=== PATIENT | male | born 1940 | race Caucasian/White ===

== ENCOUNTER 2017-06-07 07:57 | Emergency (ER) | payer MEDICARE ==
[2017-06-07] MEDS ORDERED: ASPIRIN CHEW 81 MG TABLET PO STA (08:24)
[2017-06-07 08:35] LABS: BASOPHILS % (AUTO) 0.8 %; EOSINOPHILS # (AUTO) 0.3 10^3/uL (0.0-0.7); EOSINOPHILS % (AUTO) 4.8 %; HCT - HEMATOCRIT 37.5 % (42.0-52.0); LYMPHOCYTES # (AUTO) 1.4 10^3/uL (1.5-3.5); LYMPHOCYTES % (AUTO) 26.5 %; MEAN CORPUSCULAR HEMOGLOBIN 32.4 pg (27.0-31.0); MEAN CORPUSCULAR HGB CONC 34.6 g/dL (32.0-36.0); MEAN CORPUSCULAR VOLUME 93.7 fL (80.0-94.0); MEAN PLATELET VOLUME 7.6 fL (7.4-11.4); MONOCYTES # (AUTO) 0.4 10^3/uL (0.0-1.0); MONOCYTES % (AUTO) 7.6 %; NEUTROPHILS # (AUTO) 3.2 10^3/uL (1.5-6.6); NEUTROPHILS % (AUTO) 60.3 %; UNCORRECTED WHITE BLOOD COUNT 5.2 x10^3/uL; WHITE BLOOD COUNT 5.2 x10^3/uL (4.8-10.8)
[2017-06-07] MEDS ORDERED: ASPIRIN CHEW 81 MG TABLET ONE (08:48)
--- NOTE | 2017-06-07 08:59 | ED Physician Documentation ---
PD HPI CHEST PAIN - Stated complaint Stated Complaint: CHEST PX - Chief complaint Chief Complaint: Cardiac - History obtained from History obtained from: Patient - History of Present Illness Timing - onset: How many hours ago (1) Timing - onset during: Light activity (Had just gotten up from bed.) Timing - duration: Hours (Less than one hour.) Timing - details: Now resolved Quality: Aching, Like prior ACS Location: Left chest Improved by: Nitro, Other medication (Ibuprophen) Associated symptoms: No: Shortness of air, Diaphoresis, Nausea, Vomiting Similar symptoms before: Diagnosis (Similar pain with LA two years ago.) - Treatment prior to arrival Treatment prior to arrival: NTG x 1, and Ibuprophen. - Additional information Additional information: The patient is a 77-year-old male with a history of coronary artery disease, status post CABG in 2012, and status post coronary stents, who presents with left anterior chest pain that started about 1 hour prior to arrival, shortly after getting up from bed. He took one sublingual nitroglycerin, and did not initially notice any change in his symptoms. He then took 600 mg ibuprofen, and reports that his pain has gradually resolved while enroute to the emergency department. His pain was initially a 4 out of 10 in severity, and is now gone. He denies associated shortness of breath, diaphoresis, nausea or vomiting. He reports having similar symptoms about 2 years ago when he had an LA. Review of Systems Constitutional: denies: Fever Nose: denies: Congestion Throat: denies: Sore throat Cardiac: reports: Chest pain / pressure. denies: Palpitations Respiratory: denies: Dyspnea, Cough GI: denies: Abdominal Pain, Nausea, Vomiting : denies: Dysuria Skin: denies: Rash Musculoskeletal: denies: Neck pain, Back pain, Extremity swelling Neurologic: denies: Focal weakness, Numbness, Headache PD PAST MEDICAL HISTORY - Past Medical History Past Medical History: Yes Cardiovascular: Hypertension, Coronary artery disease, [place], Other GI: GERD - Past Surgical History Past Surgical History: Yes Cardiovascular: CABG, Coronary stent - Present Medications Home Medications: Ambulatory Orders Medication Instructions Recorded Confirmed Carvedilol 6.25 mg PO BID 03/03/13 06/07/17 Lisinopril 5 mg PO DAILY 03/03/13 06/07/17 Nitroglycerin [Nitrostat] 0.4 mg SL ONCE 07/02/15 06/07/17 - Allergies Allergies/Adverse Reactions: Allergies Allergy/AdvReac Type Severity Reaction Status Date / Time No Known Drug Allergies Allergy Verified 07/02/15 11:30 - Social History Does the pt smoke?: No Smoking Status: Never smoker Does the pt drink ETOH?: No Does the pt have substance abuse?: No - Immunizations Immunizations are current?: No Immunizations: TDAP >10years/unknown PD ED PE NORMAL - Vitals Vital signs reviewed: Yes (Normal) - General General: Alert and oriented X 3, Well developed/nourished - HEENT HEENT: Atraumatic, EOMI, Pharynx benign - Neck Neck: No adenopathy, No JVD - Cardiac Cardiac: RRR, No murmur - Respiratory Respiratory: No respiratory distress, Clear bilaterally, Other (No chest wall tenderness to palpation.) - Abdomen Abdomen: Soft, Non tender, No organomegaly - Back Back: No CVA TTP - Derm Derm: No rash - Extremities Extremities: No edema, No calf tenderness / cord - Neuro Neuro: Alert and oriented X 3, No motor deficit, No sensory deficit Results - Vitals Vitals: Oxygen O2 Source Room air - EKG (time done) 08:21 Rate: Rate (enter#) (60) Rhythm: NSR [place]: Normal Intervals: Normal NC Ischemia: ST elevation c/w ischemia (in anterior leads V2 and V3.), Q waves (in inferior leads III and aVF.), T wave inversion (in III and aVF.) Compare to prior EKG: Changed from prior EKG (ST elevation in V2 and TWI in III and aVF are new since prior tracing of 07/02/15.) Computer interpretation: Agree with computer - Labs Labs: Laboratory Tests 06/07/17 06/07/17 06/07/17 08:26 08:26 08:26 WBC 5.2 RBC 4.00 L Hgb 13.0 L Hct 37.5 L MCV 93.7 MCH 32.4 H MCHC 34.6 RDW 13.0 Plt Count 133 MPV 7.6 Neut # 3.2 Lymph # 1.4 L [place] # 0.4 Eos # 0.3 Baso # 0.0 Absolute Nucleated RBC 0.00 Nucleated RBCs 0.0 Sodium 139 Potassium 4.0 Chloride 107 Carbon Dioxide 26 Anion Gap 6.0 BUN 19 Creatinine 0.9 Estimated GFR (MDRD) 82 L Glucose 100 Calcium 8.6 Total Bilirubin 1.4 H AST 40 ALT 28 Alkaline Phosphatase 52 Troponin I < 0.04 Total Protein 6.6 L Albumin 3.9 Globulin 2.7 Albumin/Globulin Ratio 1.4 Lipase 28 06/07/17 12:43 WBC RBC Hgb Hct MCV MCH MCHC RDW Plt Count MPV Neut # Lymph # [place] # Eos # Baso # Absolute Nucleated RBC Nucleated RBCs Sodium Potassium Chloride Carbon Dioxide Anion Gap BUN Creatinine Estimated GFR (MDRD) Glucose Calcium Total Bilirubin AST ALT Alkaline Phosphatase Troponin I < 0.04 Total Protein Albumin Globulin Albumin/Globulin Ratio Lipase - Rads (name of study) 1-view CXR Radiology: Prelim report reviewed, EMP read contemporaneously, See rad report ( No active disease.) PD MEDICAL DECISION MAKING - ED course Complexity details: reviewed old records, reviewed results, re-evaluated patient , considered differential, d/w patient, d/w family, d/w interventional sale consultant ED course: The patient's transient chest pain is consistent with angina, which appears to have been resolved after taking one sublingual nitroglycerin. There is no evidence to suggest acute myocardial infarction, congestive heart failure, or pericarditis. I doubt pulmonary embolus. Gastroesophageal reflux is a consideration, and the patient does have a history of reflux. His electrocardiogram reveals J-point elevation in anterior lead V2. 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 She reports that it appears unchanged from previous EKGs on file in their clinic. She recommended a repeat troponin level, and if negative outpatient follow-up. The patient's initial and four-hour troponin levels were both negative, and he remained asymptomatic during his entire time in the emergency department. Treatment in the emergency department included administration of 4 baby aspirin orally. I discussed with him the diagnosis, the importance of follow-up with his union organizer, as well as potentially worrisome signs or symptoms that should prompt reevaluation in the emergency department. Departure - Departure Disposition: 01 Home, Self Care Clinical Impression: History of acquired heart disease Chest pain Qualifiers: Chest pain type: precordial pain Qualified Code(s): R07.2 - Precordial pain Condition: Stable Instructions: ED Chest Pain Angina Stable Follow-Up: James Ken MD [Primary Care Provider] - Comments: Continue your currently prescribed medications. Take nitroglycerin if you develop recurrent chest pain. If after 5 minutes the pain has not resolved, take a second sublingual nitroglycerin. If it does not resolve within 5 minutes take a third sublingual nitroglycerin and called 911. Schedule follow-up appointment with your union organizer. Return to the emergency department if you develop increasing chest pain, shortness of breath, or otherwise worsening symptoms. Discharge Date/Time: 06/07/17 14:50
[2017-06-07 09:00] LABS: ALBUMIN/GLOBULIN RATIO 1.4 (1.0-2.2); BILIRUBIN,TOTAL 1.4 mg/dL (0.2-1.0); CALCIUM 8.6 mg/dL (8.5-10.3); CREATININE 0.9 mg/dL (0.6-1.2); TOTAL PROTEIN 6.6 g/dL (6.7-8.2)
--- NOTE | 2017-06-07 09:06 | XRAY Preliminary Report ---
Exam: XR Chest 1 View IMPRESSION: No active disease [facility] SITE ID: [id number]
--- NOTE | 2017-06-07 09:09 | XRAY Report ---
EXAM: CHEST RADIOGRAPHY EXAM DATE: 06/07/2017 08:42 AM. CLINICAL HISTORY: Chest pain. COMPARISON: 07/02/2015. TECHNIQUE: 1 view. FINDINGS: Lungs/Pleura: No focal opacities evident. No pleural effusion. No pneumothorax. Mediastinum: Poststernotomy. Heart size normal. Other: None. IMPRESSION: No active disease [facility] Referring Provider Line: [phone] SITE ID: [id number]
[2017-06-07 15:22] VITALS: BP 135/74
== END 2017-06-07 14:50 | disposition home or self-care (01) ==
LOC: ED 07:57
DX: R07.9 Chest pain, unspecified (principal); I25.10 Atherosclerotic heart disease of native coronary artery without angina pectoris; Z95.1 Presence of aortocoronary bypass graft; I10 Essential (primary) hypertension; I25.2 Old myocardial infarction; K21.9 Gastro-esophageal reflux disease without esophagitis
CPT/HCPCS: 36415; 71010; 80053; 83690; 84484; 85025; 93005; 99283; 99284; A9270

== ENCOUNTER 2021-07-20 09:50 | Emergency (ER) | payer MEDICARE ==
--- NOTE | 2021-07-20 10:11 | ED Physician Documentation ---
PD HPI BACK PAIN - Stated complaint Stated Complaint: BACK PAIN - Chief complaint Chief Complaint: Back Pain - History obtained from History obtained from: Patient - Additional information Additional information: 81-year-old gentleman presents for back pain. Its been terrible for a week, he is relatively comfortable standing up but bending over is excruciating. He denies weakness, numbness, tingling, saddle anesthesia, or incontinence. He does note chronic constipation since a coronary bypass in 2012. No history of cancer. No weight loss. No fevers. Review of Systems Ten Systems: 10 systems reviewed and negative Constitutional: denies: Fever, Chills, Weight Loss Cardiac: denies: Chest pain / pressure, Palpitations Respiratory: denies: Dyspnea, Cough PD PAST MEDICAL HISTORY - Past Medical History Past Medical History: Yes Cardiovascular: Hypertension, Coronary artery disease, [place], Other GI: GERD - Past Surgical History Past Surgical History: Yes Cardiovascular: CABG, Coronary stent - Present Medications Home Medications: Ambulatory Orders Medication Instructions Recorded Confirmed Carvedilol 6.25 mg PO BID 03/03/13 07/20/21 lisinopriL [Lisinopril] 5 mg PO DAILY 03/03/13 07/20/21 Nitroglycerin [Nitrostat] 0.4 mg SL ONCE 07/02/15 07/20/21 HYDROcod/ACETAM 5/325 [[place] 5/325] 1 - 2 tab PO Q6H PRN #20 tablet 07/20/21 - Allergies Allergies/Adverse Reactions: Allergies Allergy/AdvReac Type Severity Reaction Status Date / Time No Known Drug Allergies Allergy Verified 07/20/21 09:57 - Social History Does the pt smoke?: No Smoking Status: Never smoker Does the pt drink ETOH?: No Does the pt have substance abuse?: No - Immunizations Immunizations are current?: No Immunizations: TDAP >10years/unknown PD ED PE NORMAL - Vitals Vital signs reviewed: Yes - General General: Alert and oriented X 3, No acute distress - Abdomen Abdomen: Normal bowel sounds, Soft, Non tender - Back Back: Other (The patient has equal and normal Achilles and patellar reflexes bilaterally. Normal sensation in all areas of the legs. Patient denies saddle anesthesia. Normal strength in flexion-extension at the ankles, knees, and flexion of the hips.) - Neuro Neuro: Alert and oriented X 3, Normal speech Results - Vitals Vitals: Vital Signs - 24 hr 07/20/21 09:55 Temperature 36.4 C L Heart Rate 61 Respiratory 14 Rate Blood Pressure 145/73 H O2 Saturation 96 Oxygen O2 Source Room air - Rads (name of study) CT L spine Radiology: EMP read contemporaneously (CT of the lumbar spine was discussed with the radiologist and reviewed contemporaneously, there is a lytic lesion at S1, this is concerning for metastatic disease. No pathologic fracture at this time.) PD MEDICAL DECISION MAKING - ED course ED course: Seems like benign musculoskeletal back pain, that said given advanced age will perform imaging. Unfortunately the above study shows likely metastatic disease involving S1. Its been 15 years since his last colonoscopy he does have some chronic stool changes, so that is a possible source, he also states he has not really been having any routine prostate checks. A call was placed to his primary care PA to discuss the case and ensure timely follow-up. I discussed the case by phone with his primary care PA, Ji Yates at [facility] who will arrange for urgent follow-up for tissue diagnosis and likely oncology referral. I am prescribing a short course of short-acting opioid pain medication for this patient. 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 I have discussed that the opioids are for short term therapy only, and will not be refilled from the ED. Departure - Departure Disposition: 01 Home, Self Care Clinical Impression: Back pain, Metastatic neoplastic disease Condition: Stable Record reviewed to determine appropriate education?: Yes Instructions: ED Tumor [facility] Prescriptions: HYDROcod/ACETAM 5/325 [[place] 5/325] 1 - 2 tab PO Q6H PRN #20 tablet PRN Reason: Pain Comments: As discussed, you have a tumor at S1, which unfortunately is highly likely to be cancerous. I have talked with your primary care PA, [place] today, and he will arrange for urgent follow-up for you for likely biopsy and oncology referral. Return for new or worsening symptoms. I am prescribing a short course of narcotic pain medication for you. These are potentially dangerous and addictive medications that should be used carefully. These medications may constipate you. Take an uzkv-[id number] stool softener (docusate) twice daily with plenty of water while taking these medications. If you go 24 hours without a bowel movement, take [id number] miralax, per package instructions. Do not drink or drive while taking these medications. If you received narcotic or sedating medications while in the emergency department, do not drive for 24 hours. Store this medication in a safe, secure place and out of reach of children. It is a violation of federal law to give or sell this medication to another person or to use in a manner other than prescribed. The ED will not refill narcotic prescriptions, including prescriptions lost or stolen. To dispose of unwanted medications: 1. [facility] at [address] in [place] has a medication drop box. They accept prescription medications (in pill form) Saturday through Saturday 9:00 a.m. to 5:00 p.m. 2. The [facility] [employer] accepts prescription medications (in pill form only) for disposal year round. Call for more information. 3. Contact the [facility] for the next [facility] sponsored prescription drug collection event. , [phone], or [phone]; Note that many narcotic pain relievers also contain Tylenol/acetaminophen. Please ensure that your total dose of acetaminophen from all sources does not exceed 3 g (3000 mg) per day.
--- NOTE | 2021-07-20 11:43 | CT Report ---
PROCEDURE: LUMBAR SPINE WO INDICATIONS: back pain TECHNIQUE: Noncontrast 3 mm thick sections acquired from the T12 level to the sacrum. Sagittal and coronal refo rmats were constructed. For radiation dose reduction, the following was used: automated exposure co ntrol, adjustment of mA and/or kV according to patient size. COMPARISON: None. FINDINGS: Image quality: Excellent. Bones: There is focal lysis seen involving the central portion of the S1 level, as on series 7 image 31 and on series 6 image 34 and on series 9 image 46. There is an apparent soft tissue component see n which projects slightly posteriorly on series 9 image 46. No sacral fracture can be seen at this ti me. The bones appear diffusely demineralized. No acute vertebral body compression fractures. Mild grade 1 anterolisthesis is seen at the L4-L5 level. No associated pars defects are seen. T12-L1: Normal in appearance. L1-L2: Normal in appearance. L2-L3: The disc height is well-preserved. At least moderate disc bulge is seen. A superimposed amilcar tral disc protrusion is seen. There is moderate right-sided and mild to moderate left-sided neurofora julia narrowing seen. Mild central canal narrowing is seen. L3-L4: The disc height is well-preserved. At least moderate disc bulge is seen. A superimposed cent ral disc protrusion is seen. At least moderate facet hypertrophy is seen. Moderate to severe bilater al neuroforaminal narrowing can be seen, left worse than right. Moderate to severe central canal narr owing is seen. L4-L5: The disc height is well-preserved. At least moderate disc bulge is seen. A superimposed cent ral disc protrusion is seen. At least moderate facet hypertrophy can be seen at this level. There is at least moderate bilateral neuroforaminal narrowing seen. Moderate to severe central canal narrowing is seen. L5-S1: The disc height is well-preserved. Mild to moderate disc bulge is seen. Moderate bilateral neural foraminal narrowing is seen. Moderate central canal narrowing is seen. Soft tissues: No retroperitoneal masses or hematomas. Visualized aorta is normal in caliber. Ather osclerotic calcification is seen. An apparent pacer lead is partially seen, although please correlate with patient history. IMPRESSION: Lytic lesion seen at S1, with a soft tissue component. This represents metastatic disease until prove n otherwise. No pathologic fracture is seen at this time, although this patient is at high risk for developing a p athologic fracture. The bones appear diffusely demineralized. Please correlate with underlying patient history. If it would be helpful for clinical management decision making, please consider a dedicated, schedule d lumbar MRI for further evaluation (assuming that there is no contraindication). Note: Case discussed by telephone with Dr. Hartman at 10:39 PM [place] time on 07/12/2021. Reviewed by: Bryan Sherman MD on 07/20/2021 10:41 AM [facility] Approved by: Bryan Sherman MD on 07/20/2021 10:41 AM [facility]AN[facility] Station ID: [id number]
[2021-07-20 13:02] VITALS: BP 149/74
== END 2021-07-20 13:07 | disposition home or self-care (01) ==
LOC: ED 09:50
DX: C79.51 Secondary malignant neoplasm of bone (principal); C80.1 Malignant (primary) neoplasm, unspecified; M54.50 Low back pain, unspecified; K59.09 Other constipation; I25.10 Atherosclerotic heart disease of native coronary artery without angina pectoris; Z95.1 Presence of aortocoronary bypass graft; I10 Essential (primary) hypertension
CPT/HCPCS: 99283; 99284

== ENCOUNTER 2021-07-24 18:50 | Emergency (ER) | payer MEDICARE ==
--- NOTE | 2021-07-24 20:39 | ED Physician Documentation ---
PD HPI MALE - Stated complaint Stated Complaint: CONSTIPATION, UNABLE TO URINATE - Chief complaint Chief Complaint: Abd Pain - History obtained from History obtained from: Patient - History of Present Illness Timing - onset: How many days ago (2) Pain level now: 8 Associated symptoms: Unable to urinate Similar symptoms before: Other (chronic constipation) Recently seen: Emergency Dept - Additional information Additional information: T+R 3 days ago for back pain, CT lumbar spine revealed S1 lesion uncertain etiology but concerning for malignant process such as metastasis. He was prescribed vicodin which has been controlling his pain , but he now presents with 2 days of constipation. He says he has had problems with constipation for at least 2 years, and that when it advances enough it progresses to cause urinary retention. he says he had not been able to urinate most of the day today although shortly before this HPI/ROS, he was able to have small urine output. Review of Systems Constitutional: denies: Fever GI: reports: Constipation. denies: Abdominal Pain, Nausea, Vomiting : reports: Unable to Void (small amounts, incomplete voiding). denies: Inco ntinent Musculoskeletal: reports: Back pain Neurologic: denies: Focal weakness, Numbness PD PAST MEDICAL HISTORY - Past Medical History Past Medical History: Yes Cardiovascular: Hypertension, Coronary artery disease, [place], Other GI: GERD - Past Surgical History Past Surgical History: Yes Cardiovascular: CABG, Coronary stent - Present Medications Home Medications: Ambulatory Orders Medication Instructions Recorded Confirmed Carvedilol 6.25 mg PO BID 03/03/13 07/20/21 lisinopriL [Lisinopril] 5 mg PO DAILY 03/03/13 07/20/21 Nitroglycerin [Nitrostat] 0.4 mg SL ONCE 07/02/15 07/20/21 HYDROcod/ACETAM 5/325 [[place] 5/325] 1 - 2 tab PO Q6H PRN #20 tablet 07/20/21 - Allergies Allergies/Adverse Reactions: Allergies Allergy/AdvReac Type Severity Reaction Status Date / Time No Known Drug Allergies Allergy Verified 07/24/21 18:58 - Social History Does the pt smoke?: No Smoking Status: Never smoker Does the pt drink ETOH?: No Does the pt have substance abuse?: No - Immunizations Immunizations are current?: No Immunizations: TDAP >10years/unknown PD ED PE NORMAL - Vitals Vital signs reviewed: Yes - General General: Alert and oriented X 3, No acute distress, Well developed/nourished, Other (standing next to bed when I walk into room, NAD, able to sit back down in bed without assistance nor obvious distress) - Abdomen Abdomen: Normal bowel sounds, Soft, Non tender, Non distended - Back Back: No CVA TTP Results - Vitals Vitals: Vital Signs - 24 hr 07/24/21 07/24/21 07/24/21 18:58 21:01 22:35 Temperature 36.5 C 36.5 C Heart Rate 63 66 67 Respiratory 16 18 17 Rate Blood Pressure 150/70 H 154/82 H 149/85 H O2 Saturation 98 99 98 Oxygen O2 Source Room air - Labs Labs: Laboratory Tests 07/24/21 07/24/21 20:51 20:51 WBC 6.6 RBC 3.69 L Hgb 12.7 L Hct 38.3 L MCV 103.8 H MCH 34.4 H MCHC 33.2 RDW 13.6 Plt Count 107 L MPV 10.6 Neut # (Auto) 5.4 Lymph # (Auto) 0.8 L [place] # (Auto) 0.4 Eos # (Auto) 0.0 Baso # (Auto) 0.0 Absolute Nucleated RBC 0.00 Nucleated RBC % 0.0 Sodium 135 Potassium 3.7 Chloride 100 L Carbon Dioxide 25 Anion Gap 10.0 BUN 19 Creatinine 0.8 Estimated GFR (MDRD) 93 Glucose 109 H Calcium 8.8 Total Bilirubin 1.5 H AST 49 H ALT 38 Alkaline Phosphatase 168 H Total Protein 7.7 Albumin 3.5 Globulin 4.2 Albumin/Globulin Ratio 0.8 L Lipase 27 Procedures - General procedure General procedure: manual disempaction of stool resulted in several large, firm clumps of brown stool removed from rectal vault. I could feel more firm stool higher in vault that I was unable to reach for removal. I was able to break up the piece(s) I could reach to at least make them smaller and thus hopefully more easy to pass. He reported feeling much relief already with what I was able to remove, and he had few hundred cc urine output immediately before we started the disimpaction PD MEDICAL DECISION MAKING - ED course Complexity details: reviewed old records, considered differential, d/w patient ED course: basic blood tests done, as I do not see recent blood work and with recent finding on CT of possible osteolytic process, blood tests to include H/H and calcium level are appropriate. The results of these tests (CBC, ER abdominal panel) have no emergently concerning/contributory findings. I was able to manually disimpact moderate amount of firm, brown stool. Given glycerin suppository to take home along with bottle of magnesium citrate. Departure - Departure Disposition: Home, Self Care Clinical Impression: Constipation Qualifiers: Constipation type: unspecified constipation type Qualified Code(s): K59.00 - Constipation, unspecified Condition: Good Instructions: ED Constipation Follow-Up: Ji Yates PA [Primary Care Provider] - Comments: When you get home, use the glycerin suppository and drink 1/2 of the bottle of magnesium citrate over 20-30 minutes. If you do not have results within 1-2 hours , you can drink the other half of the bottle. You should take a stool softener such as colace twice per day while taking narcotic pain medication (such as what was prescribed on your recent emergency department visit) Discharge Date/Time: 07/24/21 23:01
[2021-07-24 20:55] LABS: BASOPHILS % (AUTO) 0.2 %; EOSINOPHILS % (AUTO) 0.6 %; HCT - HEMATOCRIT 38.3 % (42.0-52.0); HGB - HEMOGLOBIN 12.7 g/dL (14.0-18.0); LYMPHOCYTES # (AUTO) 0.8 10^3/uL (1.5-3.5); LYMPHOCYTES % (AUTO) 11.6 %; MEAN CORPUSCULAR HEMOGLOBIN 34.4 pg (27.0-31.0); MEAN CORPUSCULAR HGB CONC 33.2 g/dL (32.0-36.0); MEAN CORPUSCULAR VOLUME 103.8 fL (80.0-94.0); MEAN PLATELET VOLUME 10.6 fL (7.4-11.4); MONOCYTES # (AUTO) 0.4 10^3/uL (0.0-1.0); MONOCYTES % (AUTO) 5.9 %; NEUTROPHILS # (AUTO) 5.4 10^3/uL (1.5-6.6); NEUTROPHILS % (AUTO) 81.4 %; PLT - PLATELET COUNT 107 10^3/uL (130-450); RED BLOOD COUNT 3.69 10^6/uL (4.70-6.10); RED CELL DISTRIBUTION WIDTH 13.6 % (12.0-15.0); WHITE BLOOD COUNT 6.6 x10^3/uL (4.8-10.8)
[2021-07-24 21:09] LABS: ALBUMIN 3.5 g/dL (3.2-5.5); ALBUMIN/GLOBULIN RATIO 0.8 (1.0-2.2); BILIRUBIN,TOTAL 1.5 mg/dL (0.2-1.0); CALCIUM 8.8 mg/dL (8.5-10.3); CREATININE 0.8 mg/dL (0.6-1.2); POTASSIUM 3.7 mmol/L (3.5-5.0); TOTAL PROTEIN 7.7 g/dL (6.7-8.2)
[2021-07-24] MEDS ORDERED: GLYCERIN ADULT SUPP PR STA (22:13)
[2021-07-24] MEDS ORDERED: MAGNESIUM CITRATE 296 ML BOTTLE PO STA (22:13)
[2021-07-24 22:36] VITALS: BP 149/85
== END 2021-07-24 23:01 | disposition home or self-care (01) ==
LOC: ED 18:50
DX: K59.00 Constipation, unspecified (principal); I10 Essential (primary) hypertension
CPT/HCPCS: 36415; 80053; 83690; 85025; 99282; 99283; A9270

== ENCOUNTER 2021-07-29 20:56 | Emergency (ER) | payer MEDICARE ==
[2021-07-29] MEDS ORDERED: KETOROLAC 30 MG/ML VIAL IM STA (21:36)
--- NOTE | 2021-07-29 22:28 | ED Physician Documentation ---
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 Patient states he has no pain at present while lying in stretcher. Appointment Review of Systems Musculoskeletal: reports: Back pain PD PAST MEDICAL HISTORY - Past Medical History Past Medical History: No Cardiovascular: Hypertension, Coronary artery disease, [place], Other GI: GERD - Past Surgical History Past Surgical History: Yes Cardiovascular: CABG, Coronary stent - Present Medications Home Medications: Ambulatory Orders Medication Instructions Recorded Confirmed Carvedilol 6.25 mg PO BID 03/03/13 07/20/21 lisinopriL [Lisinopril] 5 mg PO DAILY 03/03/13 07/20/21 Nitroglycerin [Nitrostat] 0.4 mg SL ONCE 07/02/15 07/20/21 HYDROcod/ACETAM 5/325 [[place] 5/325] 1 - 2 tab PO Q6H PRN #20 tablet 07/20/21 HYDROcod/ACETAM 5/325 [[place] 5/325] 1 - 2 tablet PO Q6H PRN #20 tablet 07/29/21 - Allergies Allergies/Adverse Reactions: Allergies Allergy/AdvReac Type Severity Reaction Status Date / Time No Known Drug Allergies Allergy Verified 07/29/21 21:12 - Social History Does the pt smoke?: No Smoking Status: Never smoker Does the pt drink ETOH?: No Does the pt have substance abuse?: No - Immunizations Immunizations are current?: No Immunizations: TDAP >10years/unknown - POLST Patient has POLST: No PD ED PE NORMAL - Vitals Vital signs reviewed: Yes - General General: Alert and oriented X 3, No acute distress, Well developed/nourished - HEENT HEENT: Atraumatic, PERRL, EOMI - Cardiac Cardiac: RRR - Respiratory Respiratory: No respiratory distress, Clear bilaterally - Back Back: No spinal TTP - Derm Derm: Normal color, Warm and dry - Extremities Extremities: Other (R hip discomfort with ROM. 2+ DP/PT pulses. normal sensation, cap refill, strength) - Neuro Neuro: No motor deficit, No sensory deficit Results - Vitals Vitals: Vital Signs - 24 hr 07/29/21 07/29/21 21:12 22:44 Temperature 36.5 C Heart Rate 75 68 Respiratory 16 17 Rate Blood Pressure 155/90 H 158/66 H O2 Saturation 98 99 Oxygen O2 Source Room air PD MEDICAL DECISION MAKING - ED course ED course: 81-year-old man presented with chronic low back pain worsening this evening. Patient has an S1 spinal fusion that is likely cancerous and is scheduled for biopsy this Saturday. Also has appointment with his primary doctor on . Improved with analgesia in the emergency department. Refilled his [place] prescription. Return precautions discussed. Departure - Departure Disposition: Home, Self Care Clinical Impression: Sacral back pain, Hip pain Condition: Good Instructions: Back Safety Into and Out Bed Prescriptions: HYDROcod/ACETAM 5/325 [[place] 5/325] 1 - 2 tablet PO Q6H PRN #20 tablet PRN Reason: Pain Comments: You were seen in the emergency department for back pain and right hip pain. Please follow up with your primary doctor for your appointment this and also keep your appointment for your spinal biopsy this Saturday. We sent pain medication to your pharmacy electronically. You should take a laxative and/or stool softener with this medication. Please return to the ED if you have new or worsening symptoms or other concerns. Discharge Date/Time: 07/29/21 23:23
[2021-07-29 22:45] VITALS: BP 158/66
[2021-07-29] MEDS ORDERED: HYDROmorphone 0.5 MG/0.5 ML SYRINGE IM STA (22:52)
== END 2021-07-29 23:23 | disposition home or self-care (01) ==
LOC: ED 20:56
DX: M53.3 Sacrococcygeal disorders, not elsewhere classified (principal); M25.551 Pain in right hip; M54.50 Low back pain, unspecified; G89.29 Other chronic pain; I10 Essential (primary) hypertension; Z98.1 Arthrodesis status
CPT/HCPCS: 96372; 99283; J1170

== ENCOUNTER 2021-11-10 16:36 | Emergency (ER) | payer MEDICARE ==
[2021-11-10 17:36] LABS: BASOPHILS % (AUTO) 0.2 %; EOSINOPHILS # (AUTO) 0.3 10^3/uL (0.0-0.7); EOSINOPHILS % (AUTO) 5.4 %; HCT - HEMATOCRIT 34.9 % (42.0-52.0); HGB - HEMOGLOBIN 11.3 g/dL (14.0-18.0); LYMPHOCYTES # (AUTO) 0.6 10^3/uL (1.5-3.5); LYMPHOCYTES % (AUTO) 12.6 %; MEAN CORPUSCULAR HEMOGLOBIN 32.8 pg (27.0-31.0); MEAN CORPUSCULAR HGB CONC 32.4 g/dL (32.0-36.0); MEAN CORPUSCULAR VOLUME 101.2 fL (80.0-94.0); MEAN PLATELET VOLUME 8.6 fL (7.4-11.4); MONOCYTES # (AUTO) 0.6 10^3/uL (0.0-1.0); MONOCYTES % (AUTO) 12.2 %; NEUTROPHILS # (AUTO) 3.2 10^3/uL (1.5-6.6); NEUTROPHILS % (AUTO) 69.2 %; PLT - PLATELET COUNT 167 10^3/uL (130-450); RED BLOOD COUNT 3.45 10^6/uL (4.70-6.10); RED CELL DISTRIBUTION WIDTH 12.7 % (12.0-15.0); WHITE BLOOD COUNT 4.6 x10^3/uL (4.8-10.8)
[2021-11-10 17:49] LABS: ALBUMIN 3.5 g/dL (3.2-5.5); ALBUMIN/GLOBULIN RATIO 0.9 (1.0-2.2); BILIRUBIN,TOTAL 0.8 mg/dL (0.2-1.0); CALCIUM 9.1 mg/dL (8.5-10.3); CREATININE 0.8 mg/dL (0.6-1.2); POTASSIUM 4.4 mmol/L (3.5-5.0); TOTAL PROTEIN 7.5 g/dL (6.7-8.2)
[2021-11-10] MEDS ORDERED: IOVERSOL 320 100 ML VIAL IVP ONE ×2 (18:58→20:22)
[2021-11-10 19:29] VITALS: BP 164/74
--- NOTE | 2021-11-10 20:11 | CT Report ---
PROCEDURE: Abdomen/Pelvis W INDICATIONS: abd pain, last radiation 4 weeks ago CONTRAST: IV CONTRAST: Optiray 320 ml: 100 PO CONTRAST: *NO PO CONTRAST TECHNIQUE: After the administration of intravenous contrast, 5 mm thick sections acquired from the diaphragms to the symphysis. 5 mm thick coronal and sagittal reformats were acquired. For radiation dose reducti on, the following was used: automated exposure control, adjustment of mA and/or kV according to merced ent size. COMPARISON: CT lumbar spine 07/20/2021. FINDINGS: Image quality: Excellent. ABDOMEN: Lung bases: Lung bases are clear. Heart size is normal. Heavy coronary artery calcifications are p resent. Sternotomy wires are present. Solid organs: A well-circumscribed low-density lesions are seen in the liver that most likely repres ent cysts. Liver and spleen are normal in size and enhancement. Gallbladder is appears normal. Bili rodrigo system is non dilated. Pancreas enhances normally. Spleen is normal in size. No adrenal nodules. Kidneys demonstrate normal size and enhancement, without hydronephrosis. A hypoattenuating lesion in the interpolar region of the left kidney is too small to characterize, but may represent a cyst. Peritoneum and bowel: Moderate to large volume of stool seen throughout the colon. No free fluid or a ir. Nodes and vessels: No retroperitoneal or mesenteric adenopathy by size criteria. Aorta and inferior vena cava are normal in size. Moderate aortic atherosclerotic calcifications. Miscellaneous: No ventral hernias. PELVIS: Genitourinary: Bladder wall thickness is normal. Miscellaneous: No inguinal hernias or adenopathy. Bones: Lytic lesion at the S1 level appears decreased in size when compared to the CT from 07/20/2021 , with associated mildly decreased height of the S1 vertebral body. Heterogeneous signal is seen with in the superior S2 vertebra. There is generalized osteopenia. Mild anterior endplate depression at th e L2 level is seen. There is severe compression of any of the L1 vertebral body. Moderate superior en dplate depression of T12 is also seen. These appear new when compared to the prior CT from 07/20/2021 . Moderate T9 compression fracture also seen. IMPRESSION: 1.Lytic osseous lesion again seen at the S1 level, which demonstrates mildly decreased size and mild loss of S1 vertebral body height when compared to the prior CT from 07/20/2021. 2.Multiple age indeterminate compression fractures are seen at T9, T12, L1, and L2. The T12-L2 fractu res are new when compared to the prior lumbar spine CT. Recommend correlation for point tenderness. 3.Moderate to large volume of stool in the colon. Reviewed by: Tristen Godwin MD on 11/10/2021 8:09 PM PST Approved by: Tristen Godwin MD on 11/10/2021 8:09 PM PST Station ID: [id number]
[2021-11-10] MEDS ORDERED: oxyCODONE 5 MG TABLET PO STA (20:30)
--- NOTE | 2021-11-10 20:32 | ED Physician Documentation ---
History of Present Illness - Stated complaint Stated Complaint: ABD PX - Chief complaint Chief Complaint: Abd Pain - History obtained from History obtained from: Patient - History of Present Illness Timing: Today Pain level max: 0 Pain level now: 0 - Additonal information Additional information: Patient is a 81-year-old male with a history of multiple myeloma. He had received radiation to his spine and sacral lesions, he states the last radiation was about 4 weeks ago. Since that time he has had increasing pain. He had known lytic bone lesions at L1, L2 and sacrum. He is here for increasing pain to his spine and abdomen and pelvis. No diarrhea. Has had intermittent constipation. No vomiting. Worse with movement, better with rest. He is currently on oxycodone 5 mg, takes 2.5 to 5 mg 3-4 times per day. No numbness or tingling. No loss of bowel or bladder control. Review of Systems Constitutional: denies: Fever, Chills Nose: denies: Rhinorrhea / runny nose, Congestion Throat: denies: Sore throat Respiratory: denies: Cough GI: denies: Nausea, Vomiting, Diarrhea Skin: denies: Rash Musculoskeletal: denies: Neck pain Neurologic: denies: Focal weakness, Numbness, Headache PD PAST MEDICAL HISTORY - Past Medical History Cardiovascular: Hypertension, Coronary artery disease, [place], Other GI: GERD - Past Surgical History Past Surgical History: Yes Ortho: Spine surgery Cardiovascular: CABG, Coronary stent - Present Medications Home Medications: Ambulatory Orders Medication Instructions Recorded Confirmed Carvedilol 6.25 mg PO BID 03/03/13 11/10/21 lisinopriL [Lisinopril] 5 mg PO DAILY 03/03/13 11/10/21 Nitroglycerin [Nitrostat] 0.4 mg SL ONCE 07/02/15 11/10/21 HYDROcod/ACETAM 5/325 [[place] 5/325] 1 - 2 tablet PO Q6H PRN #20 tablet 07/29/21 Ondansetron [Ondansetron Odt] 1 PO Q8HR 10/31/21 Oxycodone HCl/Acetaminophen 1 - 2 each PO Q6H PRN #20 tablet 11/10/21 [Percocet 5-325 mg Tablet] Tamsulosin [Flomax] 1 cap PO DAILY 11/10/21 11/10/21 oxyCODONE [Roxicodone] 0.5 tablet ORAL Q6HR PRN 11/10/21 11/10/21 - Allergies Allergies/Adverse Reactions: Allergies Allergy/AdvReac Type Severity Reaction Status Date / Time No Known Drug Allergies Allergy Verified 11/10/21 17:13 - Social History Does the pt smoke?: No Smoking Status: Never smoker Does the pt drink ETOH?: No Does the pt have substance abuse?: No - Immunizations Immunizations are current?: No Immunizations: TDAP >10years/unknown - POLST Patient has POLST: No PD ED PE NORMAL - Vitals Vital signs reviewed: Yes - General General: Alert and oriented X 3, No acute distress - HEENT HEENT: PERRL, Moist mucous membranes - Neck Neck: Supple, no meningeal sign, No bony TTP - Cardiac Cardiac: RRR, Strong equal pulses - Respiratory Respiratory: No respiratory distress, Clear bilaterally - Abdomen Abdomen: Soft, Non tender, Non distended - Back Back: No spinal TTP, Other (no midline TTP) - Derm Derm: Warm and dry - Extremities Extremities: No edema - Neuro Neuro: Alert and oriented X 3 - Psych Psych: Normal mood, Normal affect Results - Vitals Vitals: Vital Signs - 24 hr 11/10/21 11/10/21 11/10/21 16:39 17:25 19:28 Temperature 36.7 C 37.1 C Heart Rate 82 79 72 Respiratory 16 18 18 Rate Blood Pressure 156/85 H 173/77 H 164/74 H O2 Saturation 95 100 97 11/10/21 20:38 Temperature Heart Rate Respiratory 20 Rate Blood Pressure O2 Saturation Oxygen O2 Source Room air - Labs Labs: Laboratory Tests 11/10/21 11/10/21 17:31 17:31 WBC 4.6 L RBC 3.45 L Hgb 11.3 L Hct 34.9 L MCV 101.2 H MCH 32.8 H MCHC 32.4 RDW 12.7 Plt Count 167 MPV 8.6 Neut # (Auto) 3.2 Lymph # (Auto) 0.6 L [place] # (Auto) 0.6 Eos # (Auto) 0.3 Baso # (Auto) 0.0 Absolute Nucleated RBC 0.00 Nucleated RBC % 0.0 Sodium 135 Potassium 4.4 Chloride 98 L Carbon Dioxide 30 Anion Gap 7.0 BUN 29 H Creatinine 0.8 Estimated GFR (MDRD) 93 Glucose 113 H Calcium 9.1 Total Bilirubin 0.8 AST 21 ALT 22 Alkaline Phosphatase 83 Total Protein 7.5 Albumin 3.5 Globulin 4.0 Albumin/Globulin Ratio 0.9 L Lipase 27 - Rads (name of study) CT abd.pelvis Radiology: Final report received, EMP read contemporaneously, See rad report PD MEDICAL DECISION MAKING - ED course Complexity details: reviewed results, re-evaluated patient, considered differential, d/w patient ED course: 81-year-old male presents to the emergency department with back pain and abdominal pain. No significant lab abnormalities. Does have compression fractures of indeterminate age on CT, but appear new since July. His pain has been present for several weeks. No evidence of cauda equina. We will increase his pain medication for home and have him follow-up with his oncologist for further care. Patient counseled regarding signs and symptoms for which I believe and urgent re-evaluation would be necessary. Patient with good understanding of and agreement to plan and is comfortable going home at this time This document was made in part using voice recognition software. While efforts are made to proofread this document, sound alike and grammatical errors may occur. IMPRESSION: 1.Lytic osseous lesion again seen at the S1 level, which demonstrates mildly decreased size and mild loss of S1 vertebral body height when compared to the prior CT from 07/20/2021. 2.Multiple age indeterminate compression fractures are seen at T9, T12, L1, and L2. The T12-L2 fractures are new when compared to the prior lumbar spine CT. Recommend correlation for point tenderness. 3.Moderate to large volume of stool in the colon. Departure - Departure Disposition: 01 Home, Self Care Clinical Impression: Vertebral compression fracture Qualifiers: Encounter type: initial encounter Fracture of vertebra location: lumbar Lumbar vertebra fracture level: unspecified lumbar vertebra Qualified Code(s): S32.000A - Wedge compression fracture of unspecified lumbar vertebra, initial encounter for closed fracture Condition: Good Instructions: ED Fx Comp Vertebral Follow-Up: Ji Yates PA [Primary Care Provider] - Tulio Nixon MD [Physician No Access] - Tulio Nixon MD [Provider Admit Priv/Credential] - Within 1 week Prescriptions: Oxycodone HCl/Acetaminophen [Percocet 5-325 mg Tablet] 1 - 2 each PO Q6H PRN #20 tablet PRN Reason: pain Comments: Please follow-up with your doctor for further care. You do have several compression fractures in your back, it is unclear if these are related to your cancer or not, Dr. Nixon may want to perform further testing including a bone scan. Your prescriptions were sent to [facility] in [place]. I am prescribing a short course of narcotic pain medication for you. These are potentially dangerous and addictive medications that should be used carefully. These medications may constipate you. Take an [id number] stool softener (docusate) twice daily with plenty of water while taking these medications. If you go 24 hours without a bowel movement, take [id number] miralax, per package instructions. Do not drink or drive while taking these medications. If you received narcotic or sedating medications while in the emergency department, do not drive for 24 hours. Store this medication in a safe, secure place and out of reach of children. It is a violation of federal law to give or sell this medication to another person or to use in a manner other than prescribed. The ED will not refill narcotic prescriptions, including prescriptions lost or stolen. To dispose of unwanted medications: 1. [facility] [address] in [place] has a medication drop box. They accept prescription medications (in pill form) Saturday through Saturday 9:00 a.m. to 5:00 p.m. 2. [facility] [employer] accepts prescription medications (in pill form only) for disposal year round. Call for more information. 3. Contact the [facility] for the next [facility] sponsored prescription drug collection event. , [phone], or [phone]; Discharge Date/Time: 11/10/21 20:41
== END 2021-11-10 20:41 | disposition home or self-care (01) ==
LOC: ED 16:36
DX: S32.000A Wedge compression fracture of unspecified lumbar vertebra, initial encounter for closed fracture (principal); X58.XXXA Exposure to other specified factors, initial encounter; I10 Essential (primary) hypertension; C90.00 Multiple myeloma not having achieved remission; Z95.1 Presence of aortocoronary bypass graft
CPT/HCPCS: 36415; 74177; 80053; 83690; 85025; 99284; A9270; Q9967; 81001; 81003; 87086

== ENCOUNTER 2021-12-25 13:29 | Outpatient (CLI) | payer MEDICARE ==
--- NOTE | 2021-12-25 15:19 | CONSULTATION NOTE ---
Palliative Care Consultation - Referral Referring Provider: Dr. Tulio Nixon Time of Visit: [id number] [place] setting[place] [facility] [place] Reason: Mutltiple myeloma/Pain of neoplasm - Information Sources Records reviewed: Previous records reviewed History/Review of Systems obtained from: Patient Exam limitations: Clinical condition (+UNGA) - History of Present Illness Brief History of Present Illness: This is a 81-year-old gentleman who was seen and evaluated today for initial palliative care consultation within the [facility] due to multiple myeloma and pain of neoplastic origin due to metastatic disease. Patient had approximately 1 week of back pain before he presented to the emergency department at [facility] on 07/20 where imaging demonstrated a lytic lesion at S1. Referral was made for biopsy and oncology. He had a biopsy performed that demonstrated stage I, multiple myeloma, IgG kappa . He underwent radiation to the spine and lytic lesions completed 10/2021. He started Velcade and Revlimid as well as Zometa infusions. The patient continues to have pain to his lateral sacral area and presented to the emergency department on 11/10/[address] scan showing T9, T12, L1, and L2 compression fractures. He is status post appointment on 11/28/2021 with spinal surgeon, Dr. Josef Sanchez at [facility] with no further interventions recommended. He is presently on fentanyl patch 25 mcg every 72 hours and taking oxycodone 5 mg as needed for breakthrough pain. He is typically taking oxycodone 1-2 tabs per day for his breakthrough pain. He does not wish to utilize it more for fear of repercussions. He is also taking acetaminophen and white Will[place] as needed for pain as well. He denies any numbness or tingling to his lower extremities.He does report that his pain is typically a 3 out of 10. The pain will shift from side to side and if he is doing an activity that exacerbates it with twisting and turning then he will stop that activity. He does not wish to have the pain go above a 4 or 5 out of 10. He states it will be "hard to keep a small interface if hurting like hell." Since his surgery with his stents in 2012 he has battled off and on constipation. In recent weeks he has dealt with some constipation and is managing with MiraLAX or Colace. He is defecating almost daily to every other day. Medical/Surgical History - Past Medical History Cardiovascular: reports: Hypertension, Coronary artery disease, MA, Other GI: reports: GERD : reports: Benign prostate hypertrophy HEENT: reports: Chronic hearing loss (+hearing aids) MRSA Hx?: No Other Past Medical History: Multiple myeloma 07/2021 - Past Surgical History Ortho: reports: Spine surgery Cardiovascular: reports: CABG, Coronary stent - Substance History Use: Uses substance without health or social issues: NONE (Former tobacco use) Social History - Living Situation Living arrangement: At home Living Situation: With spouse/s.o. Support System: Patient has been 3 times. He "infested" in his first 's sisters 2 children. His second . His third , Bharti is Beninese and they have been for approximately 7-1/2 years. The patient served in the [employer] active-duty from -. 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 He retired in 2001 where he moved full-time to [facility]. He purchased his property on [facility] [address] in [address]. No pets in the home. Family History - Family History Family History: Mother: , Father: Medications/Allergies - Medications Home Medications: Ambulatory Orders Medication Instructions Recorded Confirmed lisinopriL [Lisinopril] 5 mg PO DAILY 03/03/13 11/10/21 Nitroglycerin [Nitrostat] 0.4 mg SL ONCE 07/02/15 11/10/21 Ondansetron [Ondansetron Odt] 1 PO Q8HR 10/31/21 Tamsulosin [Flomax] 1 cap PO DAILY 11/10/21 11/10/21 Acetaminophen [Tylenol Extra 500 mg PO PRN 12/25/21 Strength] Cat's Claw 334 mg PO BID 12/25/21 Docusate Sodium 250Mg Capsule 1 cap PO PRN 12/25/21 [Colace 250Mg Capsule] Lion's Thor 560 mg PO BID 12/25/21 Senna [Senokot] 8.6 mg PO TID PRN MDD titrate to 12/25/21 12/25/21 effect White [place] 400 mg PO DAILY 12/25/21 fentaNYL [Fentanyl 25mcg patch] 1 each TD Q72H 12/25/21 oxyCODONE [Roxicodone] 5 mg PO Q6H PRN 12/25/21 polyethylene glycoL 3350 [Miralax] 8.5 mg PO QPM MDD titrate to effect 12/25/21 12/25/21 - Allergies Allergies/Adverse Reactions: Allergies Allergy/AdvReac Type Severity Reaction Status Date / Time No Known Drug Allergies Allergy Verified 11/10/21 17:13 Review of Systems - Constitutional Constitutional: reports: Weight gain (up to 140lb from 150lb; highest weight of adult life 184lb). denies: Fever, Poor appetite - Eyes Eyes: reports: Corrective lenses - Ears, Nose & Throat Ears, Nose & Throat: reports: Hearing loss, Hearing aids - Cardiovascular Cardiovascular: reports: Edema. denies: Chest pain - Respiratory Respiratory: denies: Wheezing - Gastrointestinal Gastrointestinal: reports: Constipation (intermittent, see HPI), Other (Improved appetite). denies: Abdominal pain, Nausea, Vomiting - Genitourinary Genitourinary: reports: Nocturia. denies: Dysuria - Musculoskeletal Musculoskeletal: reports: Back pain, Assistive devices (cane) - Integumentary Integumentary: reports: Dryness - Neurological Neurological: reports: General weakness - Psychiatric Psychiatric: denies: Depression - Hematologic/Lymphatic Hematologic/Lymph: denies: Recurrent infections - All Other Systems All Other Systems: reports: Reviewed and negative Physical Exam - Vital Signs Temperature: 36.6 C Pulse Rate: 68 O2 Saturation: 99 (on RA) Blood Pressure: 133/64 - Physical Exam General Appearance: positive: No acute distress, Alert, Other (+loquacious) Eyes Bilateral: positive: Normal inspection, Other (+corrective lenses) ENT: positive: No signs of dehydration, Other (+hearing aids) Neck: positive: Trachea midline Cardiovascular: positive: Regular rate & rhythm Respiratory: positive: No respiratory distress, Breath sounds nml Abdomen: positive: Non-tender, Soft, Nml bowel sounds, Other (+round) Skin: positive: Dryness Extremities: positive: Pedal edema (+1 BLE) Neurologic/Psychiatric: positive: Oriented x3, Mood/affect nml Palliative Care Pain: Pain unchanged (lower back, on fentanyl 25mcg q72h and will take 5-10mg of oxycodone for breakthrough per day) Tiredness/Fatigue: Mild (1-3) Drowsiness/Sedation: Mild (1-3) Nausea: None Anorexia: Mild (1-3) Dyspnea: None Depression: Mild (1-3) Anxiety: None Feelings of wellbeing/Perceived Quality of Life: Good Sleep: Variable sleep pattern Constipation: Opoid induced, Managed, Intermittent constipation Performance Status: Patient is ambulatory with a cane. Continent of bowel and bladder. Continues with managing IADLs. - Palliative Care Discussion: Patient felt that this diagnosis of multiple myeloma came out of nowhere when he presented to the emergency department with back pain. He is someone that is very methodical in his decision-making and demonstrates this by making charts and graphs to manage his medication and keep his schedules. He is someone that also wants to be told information and to not have this be kept at bay. He relies heavily on his armaan for support. He very much wishes to live the life that his uncle did until the age of 102 where he was completely active until he is suddenly . He recognizes that this may not be the case for him but this is something that he wishes to achieve. In relation to his lower sacral back pain lengthy discussion was had regarding how fentanyl is keeping pain controlled in the background and if building pain he is to utilize his oxycodone and continue to keep track of this as will allow us to know when to adjust the fentanyl patch and to reevaluate the treatment. Discussed goal is to not be pain-free but to optimize his comfort and function. Results - Lab Results Lab results reviewed: Yes Lab and Imaging Results: 12/25/2021 WBC 4.0, hemoglobin 11.3, hematocrit 34.5%, MCV 100.9, platelet 116, neutrophil #2.6 Impression and Recommendations - Palliative Care Impression: This is a 81-year-old gentleman with multiple myeloma with pain of neoplastic origin due to bone lesions would benefit from further titration of his bowel regimen to prevent constipation which is a fear of his as well as setting expectations regarding pain management. Introduced utilization of MiraLAX half a cap in the evening to move his bowels. Palliative Care will continue to build rapport, provide care coordination, pain and symptom management as well as anticipatory guidance moving forward. Recommendations/Counseling Done: 1. Pain of neoplastic origin due to bone lesions. Status post radiation to spine/sacral lesions completed 09/2021. Presently on fentanyl 25 mcg every 72 sury rs and utilization of oxycodone 5 mg every 6 hours as needed for breakthrough pain. Set expectations to utilize oxycodone for breakthrough pain and continue to record and will determine if further adjustments may need to be made to fentanyl patch with understanding verbalized. Moving forward advised that palliative care to assume role of pain medication with 1 provider in 1 pharmacy moving forward with understanding verbalized. Rx for Narcan sent to [facility] in [place] at patient's preference. Goal discussed with patient is to improve function moving forward. Continue utilization of cane with ambulation for fall prevention. Continue to monitor and adjust pain regimen as needed to optimize function and comfort. 2. Constipation. Occurred since 2012 and now with opioid therapy contributing. Introduced utilization of MiraLAX half a cap in the evening. Discussed bowel titration with MiraLAX. Discussed utilization of senna 8.6 mg to take 1 tablet up to 3 times a day for constipation if needed. Goal remains to be a daily, soft bowel movements. 3. Anticipatory guidance related to multiple myeloma diagnosis. Patient recognizes that he has multiple myeloma and has desire to continue to have longevity and function. We will continue to build rapport and further tease out the patient's understanding regarding his diagnosis. He prefers to have information be provided upfront with him to make an informed decision. 4. Multiple myeloma. Continue to be followed by oncology. 5. Advanced care planning. We will continue to tease out goals of care as report is built and determine if the patient has a living will at next evaluation. Did discuss today that patient is open to having his be made aware of any information on an as-needed basis but not to provide detailed information on the phone as the patient does not wish to have this provided to him third Handly. Total time spent 75 minutes with greater than 50% is spent in counseling and coordination of care with the patient, edi specialist, examination of patient, review of palliative care philosophy, review of medical records, supportive listening, review of lab work, pain and symptom management and anticipatory guidance. Disclaimer: The chart note was formulated using voice recognition technology and unfortunately sound alike errors may occur.
== END 2021-12-25 13:30 | disposition home or self-care (01) ==
LOC: PC 13:29
PROVIDERS: ATTEND Nurse Practitioner Family
DX: Z51.5 Encounter for palliative care (principal); G89.3 Neoplasm related pain (acute) (chronic); K59.00 Constipation, unspecified; C90.00 Multiple myeloma not having achieved remission; Z79.891 Long term (current) use of opiate analgesic; Z79.899 Other long term (current) drug therapy; Z92.3 Personal history of irradiation; Z87.891 Personal history of nicotine dependence
CPT/HCPCS: 99205

== ENCOUNTER 2022-02-05 12:33 | Outpatient (CLI) | payer MEDICARE ==
--- NOTE | 2022-02-05 16:10 | CONSULTATION NOTE ---
Palliative Care Follow Up - Referral Referring Provider: Dr. Tulio Nixon Time of Visit: [phone] Referral setting: [facility] [place] Reason: Multiple Myeloma/Pain of neoplasm - Information Sources Records reviewed: Previous records reviewed History/Review of Systems obtained from: Patient Exam limitations: Clinical condition (+BIG SANDY) - History of Present Illness Update Brief HPI Update: This is a 81-year-old gentleman who is seen in follow-up today at [facility] due to multiple myeloma and pain of neoplastic origin due to metastatic disease. Provider wore N95 mask. The patient is presently on a fentanyl patch 25 mcg every 72 hours and is no longer taking oxycodone for breakthrough pain. He has been utilizing other mo dalities such as stretching and and acetaminophen is appropriately effective. He has not taken oxycodone for some time. He is also utilizing some CBD Pakula when he needs it but has found being quite pleased that he no longer needs the oxycodone. He is also on a regimen of routine bowel movements on a daily basis with his present MiraLAX, Colace, coffee and dried prunes. There continued no changes in his appetite. He does fine after the third week of his treatment he has increased fatigue and will often take a nap in the afternoons. This is something that he finds manageable. Finds presently his pain is a 0.5 out of 10 and only ever increases up to 3 out of 10. Past Medical History: Patient has a past medical history of multiple myeloma, CAD with stent, hy pertension, coronary artery disease, PA, GERD, BPH, and chronic hearing loss wearing hearing aids, CABG. Social History - Living Situation Living arrangement: At home Living Situation: With spouse/s.o. Support System: Patient has been 3 times. His present , Bharti, is [place] and they have been for approximately 7.5 years. The patient served in the [employer] active-duty from -. 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 He is eventually hoping to transition to the fitness center in [place] for some physical therapy however, due to transportation and coordination with his spouse this is not happened. In the interim, he is working on increasing exercises and stretching and this is been effective. Medications/Allergies - Medications Home Medications: Ambulatory Orders Medication Instructions Recorded Confirmed lisinopriL [Lisinopril] 5 mg PO DAILY 03/03/13 11/10/21 Nitroglycerin [Nitrostat] 0.4 mg SL ONCE 07/02/15 11/10/21 Ondansetron [Ondansetron Odt] 1 PO Q8HR 10/31/21 Tamsulosin [Flomax] 1 cap PO DAILY 11/10/21 11/10/21 Acetaminophen [Tylenol Extra 500 mg PO PRN 12/25/21 Strength] Cat's Claw 334 mg PO BID 12/25/21 Docusate Sodium 250Mg Capsule 1 cap PO PRN 12/25/21 [Colace 250Mg Capsule] Adrian's Thor 560 mg PO BID 12/25/21 Senna [Senokot] 8.6 mg PO TID PRN MDD titrate to 12/25/21 12/25/21 effect [place] 400 mg PO DAILY 12/25/21 fentaNYL [Fentanyl 25mcg patch] 1 each TD Q72H 12/25/21 oxyCODONE [Roxicodone] 5 mg PO Q6H PRN 12/25/21 polyethylene glycoL 3350 [Miralax] 8.5 mg PO QPM MDD titrate to effect 12/25/21 12/25/21 Lenalidomide [Revlimid] 1 mg PO DAILY 01/05/22 01/05/22 methocarbamoL [Methocarbamol] 2 mg PO Q8HR PRN 01/22/22 01/22/22 - Allergies Allergies/Adverse Reactions: Allergies Allergy/AdvReac Type Severity Reaction Status Date / Time No Known Drug Allergies Allergy Verified 11/10/21 17:13 Review of Systems - Constitutional Constitutional: reports: Weight stable. denies: Fever, Poor appetite - Eyes Eyes: reports: Corrective lenses - Ears, Nose & Throat Ears, Nose & Throat: reports: Hearing loss, Hearing aids - Cardiovascular Cardiovascular: denies: Edema - Respiratory Respiratory: denies: Cough - Gastrointestinal Gastrointestinal: reports: Constipation (controlled, see HPI), Good appetite. denies: Abdominal pain, Vomiting - Genitourinary Genitourinary: reports: Other (+BPH). denies: Dysuria - Musculoskeletal Musculoskeletal: reports: Back pain, Assistive devices (uses cane with ambulation) - Neurological Neurological: denies: Headache - All Other Systems All Other Systems: reports: Reviewed and negative Physical Exam - Physical Exam General Appearance: positive: No acute distress, Alert, Other (+loquacious) Eyes Bilateral: positive: Normal inspection, Other (+corrective lenses) ENT: positive: No signs of dehydration Neck: positive: Trachea midline Cardiovascular: positive: Regular rate & rhythm Respiratory: positive: No respiratory distress, Breath sounds nml Abdomen: positive: Non-tender, Soft, Nml bowel sounds. negative: Distended Extremities: positive: No pedal edema Neurologic/Psychiatric: positive: Oriented x3, Mood/affect nml, Other (Ambulates with cane) Palliative Care Pain: Pain improved (low back on fentanyl 25mcg every 72h and use of acetaminophen and no longer requires oxycodone for breakthrough pain) Feelings of wellbeing/Perceived Quality of Life: Good Sleep: Sleeps well Constipation: Yes, Opoid induced, Managed - Palliative Care Discussion: Patient has been quite pleased regarding his process with related to his multiple myeloma and looking forward to the time where he will be done treatment and move to [facility] the end of March as a distinct possibility.. He is also making strides in regards to his back pain and he has found a regimen that works for him and is working on core strengthening as well as balance. Results - Lab Results Lab results reviewed: Yes Impression and Recommendations - Palliative Care Impression: This is a 81-year-old gentleman with multiple myeloma with pain of neoplastic origin due to bone lesions who presently has reduced symptom burden related to constipation and pain of neoplastic origin. No need for dose titration of of bowel regimen or opioid therapy at the present time. Palliative care will con tinue to provide support, care coordination, pain and symptom management as well as anticipatory guidance. Recommendations/Counseling Done: 1. Pain of neoplastic origin due to bone lesions. Status post radiation to spine/sacral lesions completed 09/2021. Presently on fentanyl 25 mcg every 72 hours and you are asked for fentanyl patch sent last week. Patient is aware to contact palliative care if any concerns regarding patch. No longer utilizing oxycodone 5 mg every 6 hours as needed for breakthrough pain but has it available if needed. Is presently utilizing acetaminophen [id number] as needed for pain that is effective and aware not to exceed 3000 mg daily from all sources. Narcan has been prescribed previously. Continue to encourage utilization of cane with ambulation for fall prevention. Continue to monitor and adjust pain regimen as needed to optimize function and comfort. Discussed listening to his body in regards to exercises and to help anything that causes discomfort. 2. Constipation. Has occurred since 2012 presently on a bowel regimen that is effective utilizing his MiraLAX and Colace as well as dietary modifications. Opioid therapy is contributing. Aware of how to titrate bowel regimen to have a daily, soft bowel movement. 3. Multiple myeloma. Continue to be followed by oncology. We will need to continue to build rapport and tease out goals of care. Total time spent 25 minutes with greater than 50% is spent in counseling portion of care with the patient, stone carriage operator, examination of patient; review of lab work obtained today, 02/05, pain and symptom management, supportive listening and anticipatory guidance. Disclaimer: The chart note was formulated using voice recognition technology and unfortunately sound alike errors may occur.
== END 2022-02-05 12:34 | disposition home or self-care (01) ==
LOC: PC 12:33
PROVIDERS: ATTEND Nurse Practitioner Family
DX: Z51.5 Encounter for palliative care (principal); G89.3 Neoplasm related pain (acute) (chronic); Z79.899 Other long term (current) drug therapy; Z79.891 Long term (current) use of opiate analgesic; K59.03 Drug induced constipation; T40.2X5A Adverse effect of other opioids, initial encounter; C90.00 Multiple myeloma not having achieved remission; Z92.3 Personal history of irradiation; I10 Essential (primary) hypertension
CPT/HCPCS: 99214

== ENCOUNTER 2022-04-19 08:53 | Emergency (ER) | payer MEDICARE ==
--- NOTE | 2022-04-19 10:21 | ED Physician Documentation ---
History of Present Illness - Stated complaint Stated Complaint: BACK PAIN - Chief complaint Chief Complaint: Back Pain - History obtained from History obtained from: Patient - Additonal information Additional information: The patient comes to the emergency department chief complaint of increased pain in low back and also, shooting pain in left lower quadrant that is been going on for the last few weeks. He has been treated over the last year for metastatic malignant melanoma and has a lesion in his low spine. He sees Dr. Peterson and has been on chemotherapy since undergoing radiation last September. The patient states he recently asked to stop his chemotherapy and narcotic pain medication to try to sort out some other issues and getting clarity on "how he is doing". 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 Patient denies any chest pain or shortness of breath. He states the pain in his left lower quadrant is like a sword piercing through him. He states that the pain often keeps him awake at that, but the only thing he has been taking is Tylenol. He states the narcotics are making him constipated and he wonders if he still has some constipation that is left over from those medications. No fevers or chills. No dysuria. No vomiting or nausea. No other complaints at this time. Review of Systems Ten Systems: 10 systems reviewed and negative Constitutional: reports: Reviewed and negative Eyes: reports: Reviewed and negative Ears: reports: Reviewed and negative Nose: reports: Reviewed and negative Throat: reports: Reviewed and negative Cardiac: reports: Reviewed and negative Respiratory: reports: Reviewed and negative GI: reports: Abdominal Pain : reports: Reviewed and negative Skin: reports: Reviewed and negative Musculoskeletal: reports: Back pain Neurologic: reports: Reviewed and negative Psychiatric: reports: Reviewed and negative Endocrine: reports: Reviewed and negative Immunocompromised: reports: Reviewed and negative PD PAST MEDICAL HISTORY - Past Medical History Cardiovascular: Hypertension, Coronary artery disease, [place], Other GI: GERD - Past Surgical History Past Surgical History: Yes Ortho: Spine surgery Cardiovascular: CABG, Coronary stent - Present Medications Home Medications: Ambulatory Orders Medication Instructions Recorded Confirmed lisinopriL [Lisinopril] 5 mg PO DAILY 03/03/13 11/10/21 Nitroglycerin [Nitrostat] 0.4 mg SL ONCE 07/02/15 11/10/21 Ondansetron [Ondansetron Odt] 1 PO Q8HR 10/31/21 Tamsulosin [Flomax] 1 cap PO DAILY 11/10/21 11/10/21 Acetaminophen [Tylenol Extra 500 mg PO PRN 12/25/21 Strength] Nanda's Claw 334 mg PO BID 12/25/21 Docusate Sodium 250Mg Capsule 1 cap PO PRN 12/25/21 [Colace 250Mg Capsule] Lisilvio's Thor 560 mg PO BID 12/25/21 Senna [Senokot] 8.6 mg PO TID PRN MDD titrate to 12/25/21 12/25/21 effect [place] 400 mg PO DAILY 12/25/21 fentaNYL [Fentanyl 25mcg patch] 1 each TD Q72H 12/25/21 polyethylene glycoL 3350 [Miralax] 8.5 mg PO QPM MDD titrate to effect 12/25/21 12/25/21 Lenalidomide [Revlimid] 1 mg PO DAILY 01/05/22 01/05/22 methocarbamoL [Methocarbamol] 2 mg PO Q8HR PRN 01/22/22 01/22/22 - Allergies Allergies/Adverse Reactions: Allergies Allergy/AdvReac Type Severity Reaction Status Date / Time No Known Drug Allergies Allergy Verified 11/10/21 17:13 - Social History Does the pt smoke?: No Smoking Status: Never smoker Does the pt drink ETOH?: No Does the pt have substance abuse?: No - Immunizations Immunizations are current?: No Immunizations: TDAP >10years/unknown - POLST Patient has POLST: No PD ED PE NORMAL - Vitals Vital signs reviewed: Yes - General General: Alert and oriented X 3, No acute distress, Well developed/nourished - HEENT HEENT: Atraumatic, PERRL, EOMI, Moist mucous membranes - Neck Neck: Supple, no meningeal sign - Cardiac Cardiac: RRR, No murmur, Strong equal pulses - Respiratory Respiratory: No respiratory distress, Clear bilaterally - Abdomen Abdomen: Soft, Non tender, Non distended - Derm Derm: Normal color, Warm and dry, No rash - Extremities Extremities: No deformity, No edema - Neuro Neuro: Alert and oriented X 3, 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, Normal speech - Psych Psych: Normal mood, Normal affect Results - Vitals Vitals: Vital Signs - 24 hr 04/19/22 12:53 Heart Rate 66 Respiratory 16 Rate Blood Pressure 170/89 H O2 Saturation 100 Oxygen O2 Source Room air - Rads (name of study) CT abd/pelvis Radiology: Final report received, EMP read indepedently, See rad report (Subacute compression fx T10; existing compression fxs of T12-L2) PD MEDICAL DECISION MAKING - ED course Complexity details: reviewed results, re-evaluated patient, considered differential, d/w patient ED course: I reviewed the patient's detailed records of his symptoms and doctor visits, as well as his letter to his oncologist requesting that treatment be suspended. The patient did not want any symptomatic treatment but mainly, was hoping for some imaging of the area that has been hurting. I explained to him that we could not do a PET scan, which the patient has wanted his oncologist to do sooner than scheduled, but that I could send him for a noncontrast CT of the abdomen and pelvis to look at both the intra-abdominal structures and the spine itself. The patient was agreeable. CT showed new compression fx at T10, along with existing T12-L2 compression fx. No other findings of significance. Pt is encouraged to f/u with his oncologist. He will resume prn home pain meds. Departure - Departure Disposition: 01 Home, Self Care Clinical Impression: Pathologic compression fracture of spine Qualifiers: Encounter type: initial encounter Qualified Code(s): M48.50XA - Collapsed vertebra, not elsewhere classified, site unspecified, initial encounter for fracture Condition: Stable Instructions: ED Fx Comp Vertebral Comments: The CT scan of your abdomen and pelvis shows 2 compression fractures, 1 of which was pre-existing and 1 of which appears new. You have a small right-sided hernia but this is not associated with where you are having pain. Otherwise, there are no acute or significant findings on your CT to indicate the cause of your pain. Most likely, the pain is coming from the ongoing compression fractures in your back. It is up to you whether you decide to get back on the narcotic pain medication. You will need to follow-up with Dr. Nixon to determine the next best step in your cancer care. Please call and make the next available appointment Discharge Date/Time: 04/19/22 13:10
--- NOTE | 2022-04-19 11:59 | CT Report ---
PROCEDURE: Abdomen/Pelvis WO INDICATIONS: cancer in spine, increased back/abd pn TECHNIQUE: Noncontrast 5 mm thick sections acquired from the diaphragms to the symphysis. 5 mm coronal and sagi ttal reformats were then performed. For radiation dose reduction, the following was used: automated exposure control, adjustment of mA and/or kV according to patient size. COMPARISON: 11/18/2021 CT examination. FINDINGS: Image quality: Excellent. ABDOMEN: Lung bases: Small right pleural effusion. Trace left pleural effusion. Lung bases are otherwise raf r. Heart size is normal. Severe calcification of the coronary vasculature. Solid organs: Liver and spleen are normal in size. Right and left hepatic lobe cysts are present, a s before. Gallbladder is within normal limits Pancreas is normal in contours. No adrenal nodules. Kidneys are normal in size, without hydronephrosis or nephrolithiasis. Peritoneum and bowel: Unenhanced bowel loops demonstrate normal wall thickness and caliber. No free fluid or air. Nodes and vessels: No retroperitoneal or mesenteric adenopathy by size criteria. Aorta and inferior vena cava are normal in caliber. Miscellaneous: No ventral hernias. PELVIS: Genitourinary: Bladder wall thickness is normal. Miscellaneous: There is a bowel containing right inguinal hernia which is increased in size, measurin g roughly 35 mm diameter which contains a possibly thickened small bowel loop. Bones: New moderate subacute appearing wedging of T10. No change in moderate chronic appearing wedgin g of T12. No change in moderate to severe chronic appearing wedging of L1. Increased, moderate subacu te on chronic appearing wedging of L2. There is increased lucency within the sacrum which demonstrate s mild superior endplate compression. IMPRESSION: 1. Progressive thoracolumbar and sacral pathologic fractures as described above. Initial further asse ssment with MRI is recommended. 2. Small right and trace left pleural effusions. 3. Coronary artery disease. 4. Right inguinal hernia containing small bowel with possible bowel incarceration. Clinical correlati on recommended. No evidence of associated bowel obstruction. Reviewed by: Navjot Clancy MD on 04/19/2022 11:57 AM PDT Approved by: Navjot Clancy MD on 04/19/2022 11:57 AM PDT Station ID: [id number]
[2022-04-19 12:53] VITALS: BP 170/89
== END 2022-04-19 13:10 | disposition home or self-care (01) ==
LOC: ED 08:53
DX: M48.50XA Collapsed vertebra, not elsewhere classified, site unspecified, initial encounter for fracture (principal); I10 Essential (primary) hypertension
CPT/HCPCS: 99284

== ENCOUNTER 2022-12-18 12:49 | Outpatient (CLI) | payer MEDICARE ==
--- NOTE | 2022-12-18 16:27 | MRI Report ---
PROCEDURE: LUMBAR SPINE WO INDICATIONS: LUMBAR RADICULOPATHY TECHNIQUE: Noncontrast sagittal T1 spin echo and T2 fast echo, sagittal STIR, axial T1 and T2 fast spin echo thr ough the lumbar spine. In cases with scoliosis, additional coronal T2 fast spin echo may be performe d. COMPARISON: None. FINDINGS: Image quality: Excellent. Alignment and Curvature: There is normal bony alignment. Bone Marrow: Anterior height loss of T12 of 20%. Remote compression fractures of T12, L1, and L2. Josy r vertebral plana of L1 with 80% anterior height loss and 20% posterior height loss with retropulsion measuring 7 mm. 40% anterior height loss of L2. The S1 vertebral body contains fluid signal within t he entire marrow space. Spinal Cord: Conus medullaris terminates at the L2 level. Visualized cord demonstrates normal signa l and size. Paraspinous Soft Tissues: No paravertebral masses. T12-L1: Retropulsion of the superior posterior L1 vertebral body. Edema within the left pedicle of L 1 consistent with fracture or myeloma lesion. T12-L1 has moderate bilateral foraminal stenosis. The c entral canal has moderate stenosis. L1-L2: Diffuse disc bulge and retropulsion of the superior posterior L2 vertebral body causes mild bilateral foraminal stenosis. The central canal is patent. L2-L3: Diffuse disc bulge and facet hypertrophy cause moderate bilateral foraminal stenosis. There is ligamentum flavum hypertrophy. The central canal has mild stenosis. L3-L4: Diffuse disc bulge and facet hypertrophy cause severe right and moderate left foraminal sten osis. There is ligamentum flavum hypertrophy. The central canal has severe stenosis. L4-L5: Diffuse disc bulge and facet hypertrophy cause mild bilateral foraminal stenosis. The ligame ntum flavum is hypertrophic. The central canal has severe stenosis. L5-S1: Diffuse disc bulge and facet hypertrophy cause moderate bilateral foraminal stenosis. The li gamentum flavum is hypertrophic. There is a probable 5 mm left facet synovial cyst. The central canal has severe stenosis. IMPRESSION: 1. Multilevel lumbar spondylosis causing multilevel foraminal and central canal stenosis as detailed above. 2. Severe central canal stenosis at L3-4, L4-5, and L5-S1. 3. Compression fractures of T12, L1, and L2 are remote. 4. Fluid signal of the marrow space of S1, unchanged compared to prior pelvic MRI, likely related to underlying multiple myeloma. 5. Edema in the left pedicle of L1 consistent with fracture and/or multiple myeloma lesion. 6. Probable 5 mm left facet synovial cyst at L5-S1. Reviewed by: Matias Pretty on 12/18/2022 4:26 PM PDT Approved by: Matias Pretty on 12/18/2022 4:26 PM PDT Station ID: [id number]
== END 2022-12-18 12:50 | disposition home or self-care (01) ==
LOC: DI 12:49
PROVIDERS: ATTEND Physician Assistant
DX: M47.26 Other spondylosis with radiculopathy, lumbar region (principal); M47.27 Other spondylosis with radiculopathy, lumbosacral region; M48.061 Spinal stenosis, lumbar region without neurogenic claudication; M48.07 Spinal stenosis, lumbosacral region; M48.56XD Collapsed vertebra, not elsewhere classified, lumbar region, subsequent encounter for fracture with routine healing; M48.54XD Collapsed vertebra, not elsewhere classified, thoracic region, subsequent encounter for fracture with routine healing; R93.7 Abnormal findings on diagnostic imaging of other parts of musculoskeletal system

== ENCOUNTER 2023-01-14 14:45 | Outpatient (CLI) | payer MEDICARE ==
--- NOTE | 2023-01-14 17:12 | Ultrasound Report ---
PROCEDURE: Duplex Ext Veins Left INDICATIONS: LEFT LEG EDEMA TECHNIQUE: Real-time imaging, as well as color and pulse Doppler interrogation, were performed of the lower extr emity deep veins from the inguinal ligament to the popliteal fossa. COMPARISON: None. FINDINGS: The deep veins are normally compressible, and free of intraluminal thrombus. Color and pu lse Doppler demonstrate normal phasic intraluminal flow. There is normal augmentation response to di stal compression maneuver. IMPRESSION: No deep venous thrombosis. Reviewed by: Maricel Varela MD on 01/14/2023 5:11 PM PDT Approved by: Maricel Varela MD on 01/14/2023 5:11 PM PDT Station ID: [id number]
== END 2023-01-14 14:46 | disposition home or self-care (01) ==
LOC: DI 14:45
PROVIDERS: ATTEND Internal Medicine Hematology & Oncology
DX: R60.0 Localized edema (principal)

== ENCOUNTER 2023-03-21 16:57 | Emergency (ER) | payer MEDICARE ==
--- NOTE | 2023-03-21 17:35 | ED Physician Documentation ---
History of Present Illness - Stated complaint Stated Complaint: MALE - Chief complaint Chief Complaint: General - History obtained from History obtained from: Patient - Additonal information Additional information: 82-year-old gentleman undergoing treatment for multiple myeloma presents not having had a bowel movement for 4 days with abdominal discomfort. He also notes a lump in the right groin that is been there for several weeks. He denies vomiting. No fevers. PD PAST MEDICAL HISTORY - Past Medical History Cardiovascular: Hypertension, Coronary artery disease, [place], Other GI: GERD - Past Surgical History Past Surgical History: Yes Ortho: Spine surgery Cardiovascular: CABG, Coronary stent - Present Medications Home Medications: Ambulatory Orders Medication Instructions Recorded Confirmed lisinopriL [Lisinopril] 10 mg PO DAILY 03/03/13 03/21/23 Nitroglycerin [Nitrostat] 0.4 mg SL ONCE 07/02/15 02/28/23 Tamsulosin [Flomax] 1 cap PO DAILY 11/10/21 03/21/23 Docusate Sodium 250Mg Capsule 1 cap PO PRN PRN 12/25/21 03/21/23 [Colace 250Mg Capsule] Senna [Senokot] 8.6 mg PO TID PRN MDD titrate to 12/25/21 03/21/23 effect polyethylene glycoL 3350 [Miralax] 8.5 mg PO QPM MDD titrate to effect 12/25/21 03/21/23 Carvedilol [Coreg] 6.25 mg PO DAILY 03/21/23 03/21/23 - Allergies Allergies/Adverse Reactions: Allergies Allergy/AdvReac Type Severity Reaction Status Date / Time No Known Drug Allergies Allergy Verified 03/21/23 17:07 - Social History Does the pt smoke?: No Smoking Status: Never smoker Does the pt drink ETOH?: No Does the pt have substance abuse?: No - Immunizations Immunizations are current?: No Immunizations: TDAP >10years/unknown - POLST Patient has POLST: No PD ED PE NORMAL - Vitals Vital signs reviewed: Yes - General General: Alert and oriented X 3, No acute distress - Abdomen Abdomen: Normal bowel sounds, Soft, Non tender, Other (Abdomen is soft and nontender. He has an easily reducible right inguinal hernia.) - Rectal Rectal: Other (No fecal impaction) - Neuro Neuro: Alert and oriented X 3, Normal speech Results - Vitals Vitals: Vital Signs - 24 hr 03/21/23 03/21/23 16:58 17:13 Temperature 36.4 C L Heart Rate 84 Respiratory 18 19 Rate Blood Pressure 142/70 H O2 Saturation 97 Oxygen O2 Source Room air - Labs Labs: Laboratory Tests 03/21/23 03/21/23 17:39 17:39 WBC 4.3 L RBC 3.39 L Hgb 11.1 L Hct 33.9 L MCV 100.0 H MCH 32.7 H MCHC 32.7 RDW 13.3 Plt Count 156 MPV 9.0 Neut # (Auto) 2.8 Lymph # (Auto) 0.9 L [place] # (Auto) 0.4 Eos # (Auto) 0.2 Baso # (Auto) 0.0 Absolute Nucleated RBC 0.00 Nucleated RBC % 0.0 Sodium 134 L Potassium 3.9 Chloride 103 Carbon Dioxide 26 Anion Gap 5.0 L BUN 14 Creatinine 0.9 Estimated GFR (MDRD) 81 L Glucose 133 H Calcium 8.9 Ionized Calcium NO Total Bilirubin 0.6 AST 25 ALT 23 Alkaline Phosphatase 89 Total Protein 8.4 H Albumin 3.6 Globulin 4.8 H Albumin/Globulin Ratio 0.8 L PD Medical Decision Making - ED course ED course: 82-year-old gentleman undergoing treatment for multiple myeloma albeit with some specificity as he has eschewed traditional treatment. He became constipated a few days ago and has tried numerous laxatives without good BM. He has a right inguinal hernia but it was easily reducible on exam and not consistent with an obstruction. CT as shown, I suspect he will have a large BM soon as the laxatives are starting to work. Departure - Departure Disposition: 01 Home, Self Care Clinical Impression: Constipation Qualifiers: Constipation type: unspecified constipation type Qualified Code(s): K59.00 - Constipation, unspecified Condition: Good Record reviewed to determine appropriate education?: Yes Instructions: ED Constipation Follow-Up: Darwin Quintana MD [Provider Admit Priv/Credential] - Comments: As discussed, based on your CAT scan I suspect you will probably have a diarrheal large bowel movement fairly soon. Return if worse or if not better in the next day or so. There is a good surgeon on this form if you would like to call for an appointment regarding your right inguinal hernia.
[2023-03-21] MEDS ORDERED: iohexoL-300 100 ML VIAL ONE (17:42)
[2023-03-21 17:44] LABS: BASOPHILS % (AUTO) 0.5 %; EOSINOPHILS # (AUTO) 0.2 10^3/uL (0.0-0.7); EOSINOPHILS % (AUTO) 5.3 %; HCT - HEMATOCRIT 33.9 % (42.0-52.0); HGB - HEMOGLOBIN 11.1 g/dL (14.0-18.0); LYMPHOCYTES # (AUTO) 0.9 10^3/uL (1.5-3.5); MEAN CORPUSCULAR HEMOGLOBIN 32.7 pg (27.0-31.0); MEAN CORPUSCULAR HGB CONC 32.7 g/dL (32.0-36.0); MONOCYTES # (AUTO) 0.4 10^3/uL (0.0-1.0); MONOCYTES % (AUTO) 9.7 %; NEUTROPHILS # (AUTO) 2.8 10^3/uL (1.5-6.6); NEUTROPHILS % (AUTO) 64.3 %; PLT - PLATELET COUNT 156 10^3/uL (130-450); RED BLOOD COUNT 3.39 10^6/uL (4.70-6.10); RED CELL DISTRIBUTION WIDTH 13.3 % (12.0-15.0); WHITE BLOOD COUNT 4.3 x10^3/uL (4.8-10.8)
[2023-03-21 17:57] LABS: ALBUMIN 3.6 g/dL (3.2-5.5); ALBUMIN/GLOBULIN RATIO 0.8 (1.0-2.2); ALKALINE PHOSPHATASE 89 IU/L (42-121); ALT ALANINE AMINOTRANSFERASE 23 IU/L (10-60); AST ASPARTATE AMINOTRANSFERASE 25 IU/L (10-42); BILIRUBIN,TOTAL 0.6 mg/dL (0.2-1.0); BUN - BLOOD UREA NITROGEN 14 mg/dL (6-20); CALCIUM 8.9 mg/dL (8.5-10.3); CARBON DIOXIDE - CO2 26 mmol/L (21-32); CHLORIDE 103 mmol/L (101-111); CREATININE 0.9 mg/dL (0.6-1.2); GFR - MDRD 81 (>89); GLUCOSE 133 mg/dL (70-100); IONIZED CALCIUM IF INDICATED NO; POTASSIUM 3.9 mmol/L (3.5-5.0); SODIUM 134 mmol/L (135-145); TOTAL PROTEIN 8.4 g/dL (6.7-8.2)
--- NOTE | 2023-03-21 19:06 | CT Report ---
PROCEDURE: ABDOMEN/PELVIS W INDICATIONS: IV only, abd pain, RIH History of myeloma CONTRAST: 100mL Omni 300 TECHNIQUE: After the administration of IV contrast, 5 mm thick sections acquired from the diaphragms to the symp hysis. 5 mm thick coronal and sagittal reformats were acquired. For radiation dose reduction, the f ollowing was used: automated exposure control, adjustment of mA and/or kV according to patient size. COMPARISON: 04/19/2022 FINDINGS: Image quality: Good Lower chest: Basal scarring, atelectasis, and bronchial wall thickening with possible aspiration or m ucous plugging. Coronary disease. Small hiatal hernia. Solid organs: Hypoattenuating liver lesions again seen, probably cysts. Gallbladder is unremarkable. No pathologic dilation of the biliary tree or pancreatic duct. No splenomegaly. No adrenal nodules. A nonenhancing hyperattenuating left interpolar region lesion again seen. No hydronephrosis. Vessels and lymph nodes: No abdominal aortic aneurysm. Atherosclerotic calcifications. No pathologic lymph nodes by size criteria. Bowel and peritoneum: No drainable abscess or ascites. Mostly liquid colonic contents, indicating jose e degree of colitis. No significant wall thickening. There are also prominent fluid-filled loops of s mall bowel throughout the abdomen. No significant perienteric or pericolonic fat stranding. Body wall: Small right inguinal hernia containing fat and fluid. A loop of bowel is in close proximit y to the entrance. Pelvis: Bladder is unremarkable. Prostate not well evaluated on this study. Bones: Degenerative changes. Pathologic fractures again seen of the sacrum and multiple vertebral bod ies, with minimal heterogeneity compatible with reported myeloma history. IMPRESSION: Liquid filled prominent loops of both small and large bowel suggestive of mild enterocolitis and diar shy. No severe inflammatory changes, or abscess. Right inguinal hernia with fluid and fat, in close proximity to an adjacent loop of bowel. Multiple pathologic fractures of the axial skeleton, better assessed on prior MRI. Other findings as above. Reviewed by: Gurjit Hinojosa MD on 03/21/2023 7:04 PM PDT Approved by: Gurjit Hinojosa MD on 03/21/2023 7:04 PM PDT Station ID: [id number]
[2023-03-21] MEDS ORDERED: iohexoL-300 100 ML VIAL IVP ONE (19:52)
[2023-03-21 19:55] VITALS: BP 164/82
== END 2023-03-21 19:56 | disposition home or self-care (01) ==
LOC: ED 16:57
DX: K59.00 Constipation, unspecified (principal); K40.90 Unilateral inguinal hernia, without obstruction or gangrene, not specified as recurrent
CPT/HCPCS: 36415; 74177; 80053; 82310; 85025; 99283; 99284; Q9967

== ENCOUNTER 2023-04-25 10:44 | Day surgery (SDC) | payer MEDICARE ==
[2023-04-25] MEDS ORDERED: ceFAZolin 2 GM VIAL ONE (10:46)
[2023-04-25] MEDS ORDERED: LACTATED RINGERS 1,000 ML IV ONE (10:48)
[2023-04-25] MEDS ORDERED: BUPIVACAINE 0.25% PF 30 ML VIAL ONE ×2 (11:39→13:30)
--- NOTE | 2023-04-25 12:13 | ANESTHESIA ---
Pre-Anesthesia VS, & Labs - Diagnosis right inguinal hernia - Procedure right inguinal hernia repair, open Vital Signs: Temp Pulse Resp BP Pulse Ox O2 Flow Rate 36 C L 63 16 168/91 H 98 04/25/23 10:53 04/25/23 10:53 04/25/23 10:53 04/25/23 10:53 04/25/23 10:53 Height: 5 ft 4 in Weight (kg): 61 kg Body Mass Index: 23.1 BMI Classification: Normal - NPO Other (cream in coffee at 7am, otherwise NPO) Home Medications and Allergies lisinopriL [Lisinopril] 10 mg PO DAILY 03/03/13 Nitroglycerin [Nitrostat] 0.4 mg SL ONCE 07/02/15 Tamsulosin [Flomax] 1 cap PO DAILY 11/10/21 Docusate Sodium 250Mg Capsule [Colace 250Mg Capsule] 1 cap PO PRN PRN 12/25/21 Senna [Senokot] 8.6 mg PO TID PRN MDD titrate to effect 12/25/21 polyethylene glycoL 3350 [Miralax] 8.5 mg PO QPM MDD titrate to effect 12/25/21 Carvedilol [Coreg] 6.25 mg PO DAILY 03/21/23 Allergies/Adverse Reactions: Allergies Allergy/AdvReac Type Severity Reaction Status Date / Time No Known Drug Allergies Allergy Verified 03/21/23 17:07 Anes History & Medical History - Anesthetic History Anesthesia Complications: reports: No previous complications - Medical History Cardiovascular: reports: Hypertension, Coronary artery disease, [place], Other Pulmonary: reports: None Gastrointestinal: reports: GERD Urinary: reports: None Musculoskeletal: reports: Other Endocrine/Autoimmune: reports: None Smoking Status: Never smoker History of Cancer?: Yes (Melenoma) - Surgical History General: reports: Colonoscopy Eyes Ears Nose Throat (EENT): reports: Tonsil/Adenoidectomy Cardiothoracic: reports: CABG, Coronary stent Orthopedic: reports: Spine surgery Exam General: Alert, Oriented x3 Mouth Opening: Greater than 4 Fingerbreadths Neck Mobility: Normal Mallampati classification: II Thyromental Distance: greater than 6 cm Respiratory: Lungs clear Cardiovascular: Regular rate Plan Anesthesia Type: MAC, Total IV Consent for Procedure(s) Verified and Reviewed: Yes Code Status: Attempt Resuscitation ASA classification: 3-Severe systemic disease Is this case an emergency?: No
[2023-04-25] MEDS ORDERED: LIDOCAINE 1%-EPI 1:100000 20 ML MDV ONE (12:27)
[2023-04-25] MEDS ORDERED: LIDOCAINE 1%-EPI 1:100000 20 ML MDV SUBQ ONE (13:27)
[2023-04-25] MEDS ORDERED: BUPIVACAINE 0.25% PF 30 ML VIAL SUBQ ONE (13:27)
[2023-04-25] MEDS ORDERED: PROPOFOL 200 MG/20 ML VIAL IVP ONE (13:55)
[2023-04-25] MEDS ORDERED: LACTATED RINGERS 400 ML IV ONE (14:26)
[2023-04-25] MEDS ORDERED: oxyCODONE 5 MG TABLET PO PRN (14:30)
--- NOTE | 2023-04-25 14:51 | OPERATIVE REPORT ---
Operative Report - General Procedure Date: 04/25/23 Planned Procedure: open right inguinal hernia repair Pre-Op Diagnosis: right inguinal hernia Procedure Performed: open right inguinal hernia repair Post Op Diagnosis: direct inguinal hernia - Procedure Note Primary Surgeon: ladonna peace Anesthesia Technique: Local, MAC Pathology: fat and nerve removed. not sent Estimated Blood Loss (mL): 2 Drain/Tube Type: Other (none) Indications: painful hernia bulge Findings: branching and scarred ilioinguinal nerve remove Complications: none - Other Other Information/Narrative: Patient was properly identified brought to the operating room and placed in supine position. Sequential compression devices were placed. Monitored anesthesia care was given. He was prepped and draped in a sterile fashion and given preoperative antibiotics. Local anesthetic was given throughout the procedure. A 5 cm incision was made in the direction of Ector's lines just cephalad of the pubic tubercle. Dissection proceeded with cutting current cautery. The superficial epigastric vein was identified clamped divided and tied with 3-0 Vicryl. Dissection proceeded down to the aponeurosis. The aponeurosis was opened in the direction of its fibers and extended to the external ring. Cord structures were mobilized and brought up. The nerves were carefully protected and preserved as possible. the ilioinguinal nerve was removed due to scarring and branching. Cord structures were mobilized and brought up. An indirect inguinal hernia was present. The hernia sac was mobilized off the cord structures and suture ligated with 2 O silk and further reduced. Preperitoneal fat was removed. The base was tied with 2 O vicryl. Polypropylene mesh was cut to size and with tails. The mesh was secured with multiple interrupted 0 Ethibond sutures. sutures were placed along the pubic tubercle, Gavin's ligament area and along the shelving border of Poupart's ligament. Sutures were placed medially along the abdominal wall musculature and internal oblique. The medial tail of the mesh was secured to the shelving border of Poupart's ligament with 3 interrupted 0 ethibond sutures recreating the internal ring of appropriate size. Aponeurosis was closed with a running 2-0 Vicryl suture. The opposite was closed with interrupted 3-0 Vicryl suture. Buried interrupted subdermal 3-0 Vicryl sutures were then placed. And was closed with a running 4-0 Monocryl subcuticular suture. Dressing was applied. Patient was awakened and brought to recovery in good condition.
[2023-04-25 14:53] VITALS: BP 133/69
[2023-04-25] MEDS ORDERED: oxyCODONE 5 MG TABLET ONE (15:04)
--- NOTE | 2023-04-25 15:42 | ANESTHESIA POST OP EVALUATION ---
Anesthesia Post Eval - Post Anesthesia Eval Vitals: Last Vital Signs Temp 36.2 C L 04/25/23 14:46 Pulse 65 04/25/23 14:46 Resp 16 04/25/23 14:46 BP 133/69 H 04/25/23 14:46 Pulse Ox 97 04/25/23 14:46 O2 Flow Rate CV Function Including HR & BP: Stable Pain Control: Satisfactory Nausea & Vomiting: Negative Mental Status: Baseline Respiratory Status: Airway Patent Hydration Status: Satisfactory Anesthesia Complications: None
== END 2023-04-25 10:45 | disposition home or self-care (01) ==
LOC: SDS 10:44
PROVIDERS: ATTEND Surgery
DX: K40.90 Unilateral inguinal hernia, without obstruction or gangrene, not specified as recurrent (principal); I10 Essential (primary) hypertension; Z87.891 Personal history of nicotine dependence
CPT/HCPCS: 49505; A9270; C1781; J7120

== ENCOUNTER 2023-09-17 10:36 | Emergency (ER) | payer MEDICARE ==
[2023-09-17 11:58] LABS: B. PARAPERTUSSIS- RESP PCR PAN NOT DETECTED; B. PERTUSSIS- RESP PCR PANEL NOT DETECTED; C. PNEUMONIAE- RESP PCR PANEL NOT DETECTED; CORONAVIRUS 229E-RESP PCR NOT DETECTED; CORONAVIRUS HKU1-RESP PCR NOT DETECTED; CORONAVIRUS NL63-RESP PCR NOT DETECTED; CORONAVIRUS OC43-RESP PCR NOT DETECTED; HUMAN METAPNEUMOVIRUS NOT DETECTED; INFLUENZA A- RESP PCR PANEL NOT DETECTED; INFLUENZA B - RESP PCR PANEL NOT DETECTED; M. PNEUMONIAE- RESP PCR PANEL NOT DETECTED; PARAINFLUENZA VIRUS 1 NOT DETECTED; PARAINFLUENZA VIRUS 2 NOT DETECTED; PARAINFLUENZA VIRUS 3 NOT DETECTED; PARAINFLUENZA VIRUS 4 NOT DETECTED; RHINOVIRUS/ENTEROVIRUS DETECTED; RSV- RESP PCR PANEL NOT DETECTED; SARS-CoV-2 -RESP PCR PANEL NOT DETECTED
[2023-09-17 12:11] LABS: BASOPHILS % (AUTO) 0.3 %; EOSINOPHILS # (AUTO) 0.1 10^3/uL (0.0-0.7); EOSINOPHILS % (AUTO) 1.5 %; HCT - HEMATOCRIT 31.1 % (42.0-52.0); HGB - HEMOGLOBIN 9.7 g/dL (14.0-18.0); LYMPHOCYTES # (AUTO) 0.6 10^3/uL (1.5-3.5); LYMPHOCYTES % (AUTO) 8.7 %; MEAN CORPUSCULAR HEMOGLOBIN 32.1 pg (27.0-31.0); MEAN CORPUSCULAR HGB CONC 31.2 g/dL (32.0-36.0); MEAN PLATELET VOLUME 10.9 fL (7.4-11.4); MONOCYTES # (AUTO) 0.5 10^3/uL (0.0-1.0); MONOCYTES % (AUTO) 7.6 %; NEUTROPHILS # (AUTO) 5.5 10^3/uL (1.5-6.6); NEUTROPHILS % (AUTO) 81.6 %; PLT - PLATELET COUNT 151 10^3/uL (130-450); RED BLOOD COUNT 3.02 10^6/uL (4.70-6.10); RED CELL DISTRIBUTION WIDTH 13.8 % (12.0-15.0); WHITE BLOOD COUNT 6.7 x10^3/uL (4.8-10.8)
--- NOTE | 2023-09-17 12:13 | ED Physician Documentation ---
PD HPI DYSPNEA - Stated complaint Stated Complaint: SOA,HEART PROBLEMS - Chief complaint Chief Complaint: Resp - History obtained from History obtained from: Patient, Family - Additional information Additional information: The patient comes to the emergency department chief complaint of a sense of shortness of breath and a cough productive of white sputum for the last approximately month. He states has been mild for most of the month but over the last week seems to gotten worse. He just saw his fiber optics supervisor about 4 days ago and the fiber optics supervisor thought that it was perhaps his "leaky valve". The patient and his do not know which valve but they do say that the fiber optics supervisor is now saying that the patient needs to have a valve replacement, which was not the case about 6 months ago when he was last seen by cardiology. The patient states that he feels the worst when he wakes up in the morning after laying down all night. He feels as though he gets mucus stuck in his airways and has to cough it out. He states that once he is up and around and can cough, his breathing gets better. He does seem to have some wheezing. The patient states he was a smoker until age 30 but has not smoked since and has never been diagnosed with COPD. He denies any chest pain. No increase in swelling in his lower extremities. He states he usually has no swelling in his right leg and has chronic swelling in his left leg where veins were harvested for a quadruple bypass in 2012. The patient states that he has not had any fevers. He has chronic chills but this is not unusual for him. He is on chemotherapy currently for multiple myeloma and had radiation last year. states that through the course of cancer treatment, he has lost about 6 inches of height. The patient states he is feeling fine laying in bed. He had an oncology appointment today but he canceled it to come to the emergency department. No other complaints at this time. PD PAST MEDICAL HISTORY - Past Medical History Past Medical History: Yes Cardiovascular: Hypertension, Coronary artery disease, [place], Valve disorder, Other Respiratory: None Endocrine/Autoimmune: None GI: GERD : None Musculoskeletal: None Other Past Medical History: myoloma plasma cancer - Past Surgical History Past Surgical History: Yes Ortho: Spine surgery Cardiovascular: CABG, Coronary stent - Present Medications Home Medications: Ambulatory Orders Medication Instructions Recorded Confirmed lisinopriL [Lisinopril] 10 mg PO DAILY 03/03/13 09/17/23 Nitroglycerin [Nitrostat] 0.4 mg SL ONCE PRN 07/02/15 09/17/23 Docusate Sodium 250Mg Capsule 1 cap PO PRN PRN 12/25/21 09/17/23 [Colace 250Mg Capsule] Senna [Senokot] 8.6 mg PO TID PRN MDD titrate to 12/25/21 09/17/23 effect polyethylene glycoL 3350 [Miralax] 8.5 mg PO QPM PRN MDD titrate to 12/25/21 09/17/23 effect carvediloL [Coreg] 6.25 mg PO BID 03/21/23 09/17/23 dexAMETHasone [Decadron] 20 mg PO OAW 06/18/23 09/17/23 fentaNYL [Fentanyl 25mcg patch] 50 mcg TD UD 09/17/23 09/17/23 - Allergies Allergies/Adverse Reactions: Allergies Allergy/AdvReac Type Severity Reaction Status Date / Time valacyclovir AdvReac Hallucinati Verified 09/17/23 10:48 ons - Social History Does the pt smoke?: No Smoking Status: Former smoker Does the pt drink ETOH?: No Does the pt have substance abuse?: No - Immunizations Immunizations are current?: No Immunizations: TDAP >10years/unknown - POLST Patient has POLST: No PD ED PE NORMAL - Vitals Vital signs reviewed: Yes - General General: Alert and oriented X 3, No acute distress, Well developed/nourished - HEENT HEENT: Atraumatic, PERRL, EOMI, Moist mucous membranes - Neck Neck: Supple, no meningeal sign - Cardiac Cardiac: RRR, Strong equal pulses, Other (3-6 systolic murmur.) - Respiratory Respiratory: No respiratory distress, Other (Fine bilateral wheezes, most prominent in Upper lung grady, but extending into lower lung grady as well. Symmetrical.) - Abdomen Abdomen: Soft, Non tender, Non distended - Derm Derm: Normal color, Warm and dry, No rash - Extremities Extremities: No deformity, Other (1+ pitting edema left lower extremity; no edema right lower extremity.) - Neuro Neuro: Alert and oriented X 3, Other (Grossly intact) - Psych Psych: Normal mood, Normal affect Results - Vitals Vitals: Vital Signs - 24 hr 09/17/23 09/17/23 09/17/23 10:49 12:47 13:00 Temperature 36.2 C L Heart Rate 76 82 93 Respiratory 20 20 18 Rate Blood Pressure 113/64 131/75 H O2 Saturation 96 94 Oxygen O2 Source Room air - Labs Labs: Laboratory Tests 09/17/23 09/17/23 09/17/23 11:00 12:00 12:00 WBC 6.7 RBC 3.02 L Hgb 9.7 L Hct 31.1 L MCV 103.0 H MCH 32.1 H MCHC 31.2 L RDW 13.8 Plt Count 151 MPV 10.9 Neut # (Auto) 5.5 Lymph # (Auto) 0.6 L [place] # (Auto) 0.5 Eos # (Auto) 0.1 Baso # (Auto) 0.0 Absolute Nucleated RBC 0.00 Nucleated RBC % 0.0 Sodium 134 L Potassium 4.0 Chloride 101 Carbon Dioxide 26 Anion Gap 7.0 BUN 35 H Creatinine 0.6 Estimated GFR (MDRD) 129 Glucose 109 H Calcium 8.8 Total Bilirubin 0.7 AST 15 ALT 9 L Alkaline Phosphatase 50 B-Natriuretic Peptide Total Protein 8.0 Albumin 3.6 Globulin 4.4 H Albumin/Globulin Ratio 0.8 L Lipase < 10 L Nasal Adenovirus (PCR) NOT DETECTED Nasal B. parapertussis DNA (PCR) NOT DETECTED Nasal Coronavir 229E PCR NOT DETECTED Nasal Coronavir HKU1 PCR NOT DETECTED Nasal Coronavir NL63 PCR NOT DETECTED Nasal Coronavir OC43 PCR NOT DETECTED Nasal Enterovir/Rhinovir PCR DETECTED A Nasal Influenza B PCR NOT DETECTED Nasal Influenza A PCR NOT DETECTED Nasal Parainfluen 1 PCR NOT DETECTED Nasal Parainfluen 2 PCR NOT DETECTED Nasal Parainfluen 3 PCR NOT DETECTED Nasal Parainfluen 4 PCR NOT DETECTED Nasal RSV (PCR) NOT DETECTED Nasal B.pertussis DNA PCR NOT DETECTED Nasal C.pneumoniae (PCR) NOT DETECTED [place] Human Metapneumo PCR NOT DETECTED Nasal M.pneumoniae (PCR) NOT DETECTED Nasal SARS-CoV-2 (PCR) NOT DETECTED 09/17/23 12:00 WBC RBC Hgb Hct MCV MCH MCHC RDW Plt Count MPV Neut # (Auto) Lymph # (Auto) [place] # (Auto) Eos # (Auto) Baso # (Auto) Absolute Nucleated RBC Nucleated RBC % Sodium Potassium Chloride Carbon Dioxide Anion Gap BUN Creatinine Estimated GFR (MDRD) Glucose Calcium Total Bilirubin AST ALT Alkaline Phosphatase B-Natriuretic Peptide 1078 H Total Protein Albumin Globulin Albumin/Globulin Ratio Lipase Nasal Adenovirus (PCR) Nasal B. parapertussis DNA (PCR) Nasal Coronavir 229E PCR Nasal Coronavir HKU1 PCR Nasal Coronavir NL63 PCR Nasal Coronavir OC43 PCR Nasal Enterovir/Rhinovir PCR Nasal Influenza B PCR Nasal Influenza A PCR Nasal Parainfluen 1 PCR Nasal Parainfluen 2 PCR Nasal Parainfluen 3 PCR Nasal Parainfluen 4 PCR Nasal RSV (PCR) Nasal B.pertussis DNA PCR Nasal C.pneumoniae (PCR) [place] Human Metapneumo PCR Nasal M.pneumoniae (PCR) Nasal SARS-CoV-2 (PCR) PD Medical Decision Making - ED course Complexity details: reviewed results, re-evaluated patient, considered differential, d/w patient ED course: The patient overall is very well-appearing and his vital signs were completely normal, including temperature, blood pressure, heart rate, and oxygen saturation. He appeared in a normal sinus rhythm on the monitor. The patient was worked up with labs, respiratory PCR panel, and chest x-ray. For his wheezing, he was treated with a DuoNeb. The patient's laboratory studies showed a BNP around thousand and respiratory PCR panel was positive for rhinovirus. The chest x-ray was unremarkable other than a little atelectasis versus small effusion in the base of the left lung. The patient was found to have a looser cough after the DuoNeb and was still stable. I discussed the results with the patient and his and that I feel he is stable for discharge home. They had mentioned that they have a stepdaughter who is a nurse who had suggested that the patient may benefit from a diuretic, and I did discuss with them that at this point, given the patient has rhinovirus and has no findings on physical exam or on his x-ray to indicate fluid building up in his lungs or lower extremities, that I would hold off on starting any diuretics. The patient undoubtedly has some degree of underlying, chronic congestive heart failure from his valvular issues, but there is no evidence of an acute exacerbation at this time, and if the fiber optics supervisor did not feel the patient should be on a diuretic at this time, I do not feel there is any emergent reason to override this. I encouraged the patient and his to touch base with cardiology once the rhinovirus infection blows over and determine whether any changes should be made in his chronic management. As far as any antitussives or any other treatment, the patient and his would like to just try natural remedies at home and do not wish any prescriptions at this time. We have discussed the usual indications for follow-up and return. Departure - Departure Disposition: 01 Home, Self Care Clinical Impression: Acute viral syndrome Congestive heart failure Qualifiers: Heart failure type: unspecified Heart failure chronicity: chronic Qualified Code(s): I50.9 - Heart failure, unspecified Condition: Stable Instructions: ED Viral Syndrome, ED CHF General Comments: Your laboratory studies overall look good. You do have some elevation of the lab value that we checked to look for congestive heart failure and this is not surprising, considering your valvular issues. However, there is no evidence at this time of an acute exacerbation of your congestive heart failure, meaning that we do not find evidence on physical exam or on tests including chest x-ray of any fluid building up in your lungs or the rest of your body. You do not have any swelling in your legs that is unusual for you and your chest x-ray does not indicate buildup of fluid in your lungs. As such, with regard to the family member suggestion of needing a possible diuretic, there is no indication for this emergently at this time. You do have a viral illness in the form of rhinovirus that is most likely responsible for the uptick in your cough. It is most advisable to wait for this illness to blow over and then touch base with cardiology to determine whether your fiber optics supervisor has changed his mind about any need for diuretics. At this point in time, it does not sound like your fiber optics supervisor felt you needed diuretics and as such, judgment in this regard should be deferred to him unless you develop more acute fluid buildup. You have declined to have any cough medicine at this time, which is fine. You may do your sauna treatments at home and also, consider using a humidifier at night and perhaps some Vicks VapoRub when you go in the sauna or in the shower. If you develop severe shortness of breath, chest pain, or any other concerning symptoms, please return to the emergency department. Forms: PCP List
[2023-09-17] MEDS ORDERED: DEXAMETHASONE 10 MG/ML VIAL IVP STA (12:15)
[2023-09-17] MEDS ORDERED: IPRATROPIUM/ALBUTEROL 3 ML NEB INH STA (12:15)
[2023-09-17 12:20] LABS: ALBUMIN 3.6 g/dL (3.2-5.5); ALBUMIN/GLOBULIN RATIO 0.8 (1.0-2.2); ALKALINE PHOSPHATASE 50 IU/L (42-121); ALT ALANINE AMINOTRANSFERASE 9 IU/L (10-60); AST ASPARTATE AMINOTRANSFERASE 15 IU/L (10-42); BILIRUBIN,TOTAL 0.7 mg/dL (0.2-1.0); BUN - BLOOD UREA NITROGEN 35 mg/dL (6-20); CALCIUM 8.8 mg/dL (8.5-10.3); CARBON DIOXIDE - CO2 26 mmol/L (21-32); CHLORIDE 101 mmol/L (101-111); CREATININE 0.6 mg/dL (0.6-1.3); GFR - MDRD 129 (>89); GLUCOSE 109 mg/dL (74-104); SODIUM 134 mmol/L (135-145)
[2023-09-17 12:22] LABS: LIPASE < 10 U/L (11-82)
--- NOTE | 2023-09-17 12:37 | XRAY Report ---
PROCEDURE: Chest 2V INDICATIONS: cough TECHNIQUE: 2 views of the chest were acquired. COMPARISON: Chest CT 06/22/2023 FINDINGS: Surgical changes and devices: Sternotomy wires and mediastinal clips are present. Lungs and pleura: Small left pleural effusion with atelectasis versus consolidation of the left lung base. Mediastinum: Cardiac silhouette is mildly enlarged. Bones and chest wall: Multilevel vertebral compression fractures throughout the spine. IMPRESSION: 1.Small left pleural effusion with left basilar atelectasis or consolidation. 2.Mild cardiomegaly. 3.Multilevel thoracolumbar compression fractures. Reviewed by: Tristen Godwin MD on 09/17/2023 12:36 PM PST Approved by: Tristen Godwin MD on 09/17/2023 12:36 PM PST Station ID: [id number]
[2023-09-17 13:13] VITALS: BP 131/75; O2SAT 94
== END 2023-09-17 14:15 | disposition home or self-care (01) ==
LOC: ED 10:36
DX: B34.8 Other viral infections of unspecified site (principal); I50.9 Heart failure, unspecified; C90.00 Multiple myeloma not having achieved remission; Z79.899 Other long term (current) drug therapy; Z87.891 Personal history of nicotine dependence
CPT/HCPCS: 36415; 80053; 83690; 83880; 85025; 87633; 94640; 99284

== ENCOUNTER 2023-11-12 08:39 | Outpatient (CLI) | payer MEDICARE | END 2023-11-12 23:59 | disposition critical access hospital (66) | LOC: EMS 08:39 | DX: R06.02 Shortness of breath (principal); R09.89 Other specified symptoms and signs involving the circulatory and respiratory systems | CPT/HCPCS: A0425; A0429 ==

== ENCOUNTER 2023-11-12 09:43 | Inpatient (IN) | payer MEDICARE ==
[2023-11-12 10:22] LABS: BASOPHILS % (AUTO) 0.1 %; HCT - HEMATOCRIT 38.6 % (42.0-52.0); HGB - HEMOGLOBIN 12.2 g/dL (14.0-18.0); LYMPHOCYTES # (AUTO) 0.7 10^3/uL (1.5-3.5); LYMPHOCYTES % (AUTO) 6.7 %; MEAN CORPUSCULAR HEMOGLOBIN 31.4 pg (27.0-31.0); MEAN CORPUSCULAR HGB CONC 31.6 g/dL (32.0-36.0); MEAN CORPUSCULAR VOLUME 99.2 fL (80.0-94.0); MEAN PLATELET VOLUME 10.1 fL (7.4-11.4); MONOCYTES # (AUTO) 0.6 10^3/uL (0.0-1.0); MONOCYTES % (AUTO) 5.5 %; NEUTROPHILS # (AUTO) 9.5 10^3/uL (1.5-6.6); NEUTROPHILS % (AUTO) 87.1 %; PLT - PLATELET COUNT 198 10^3/uL (130-450); RED BLOOD COUNT 3.89 10^6/uL (4.70-6.10); RED CELL DISTRIBUTION WIDTH 14.4 % (12.0-15.0); WHITE BLOOD COUNT 10.9 x10^3/uL (4.8-10.8)
--- NOTE | 2023-11-12 10:27 | XRAY Report ---
PROCEDURE: Chest 1V INDICATIONS: SOB TECHNIQUE: One view of the chest was acquired. COMPARISON: 09/17/2023 FINDINGS: Surgical changes and devices: Median sternotomy wires.. Lungs and pleura: Prominent interstitial markings and diffuse hazy pulmonary opacities. Small bilate ral pleural effusions. Mediastinum: Mediastinal contours appear normal. Heart size is enlarged. Bones and chest wall: No suspicious bony lesions. Overlying soft tissues appear unremarkable. IMPRESSION: Cardiomegaly with diffuse prominent interstitial markings and hazy pulmonary opacities with small chevy ateral pleural effusions. Differential includes pulmonary edema or infection. Reviewed by: Deniz Mistry MD on 11/12/2023 10:26 AM PST Approved by: Deniz Mistry MD on 11/12/2023 10:26 AM PST Station ID: [id number]
[2023-11-12 10:29] LABS: ABG PH 7.38 (7.35-7.45)
[2023-11-12 10:30] LABS: ABG BASE EXCESS 0.5 mmol/L (-2.0-3.0); ABG OXYGEN SATURATION 99 % (94-98); ABG PCO2 45 mmHg (34-45); ABG PO2 141 mmHg (80-100); ABG TCO2 27.3 MMOL/L (21.0-29.0); ALLEN TEST POSITIVE
[2023-11-12 10:31] LABS: ABG RESPIRATORY RATE 12 b/min
[2023-11-12 10:34] LABS: ALBUMIN 4.1 g/dL (3.2-5.5); ALBUMIN/GLOBULIN RATIO 0.7 (1.0-2.2); ALKALINE PHOSPHATASE 47 IU/L (42-121); ALT ALANINE AMINOTRANSFERASE 14 IU/L (10-60); AST ASPARTATE AMINOTRANSFERASE 21 IU/L (10-42); BILIRUBIN,TOTAL 0.7 mg/dL (0.2-1.0); BUN - BLOOD UREA NITROGEN 43 mg/dL (6-20); CALCIUM 9.4 mg/dL (8.5-10.3); CARBON DIOXIDE - CO2 28 mmol/L (21-32); CHLORIDE 98 mmol/L (101-111); CREATININE 0.9 mg/dL (0.6-1.3); GFR - MDRD 81 (>89); GLUCOSE 115 mg/dL (74-104); LIPASE < 10 U/L (11-82); POTASSIUM 4.3 mmol/L (3.5-4.5); SODIUM 131 mmol/L (135-145)
[2023-11-12] MEDS: IPRATROPIUM/ALBUTEROL 3 ML NEB INH STA (10:44)
--- NOTE | 2023-11-12 10:54 | ED Physician Documentation ---
PD HPI DYSPNEA - Stated complaint Stated Complaint: SOA - Chief complaint Chief Complaint: Resp - History obtained from History obtained from: Patient, EMS - Additional information Additional information: The patient is brought to the emergency department by EMS for chief complaint of escalating dyspnea over the last few weeks but especially since yesterday. He states that heHas not had any chest pain, cough, or fevers, and normally does not use oxygen at home. He has a history of aortic stenosis and has been seeing a equipment operator/laborer/supervisor in [place] and they are trying to decide whether or not he is a candidate for TAVR according to records. He is also Being treated here with chemotherapy for multiple myeloma, with last treatment being done yesterday. The patient is on palliative care and was sent in today by his palliative care nurse because of his shortness of breath. He has had waxing and waning dyspnea over time, associated with his aortic stenosis, but this feels worse than usual. The patient does state that he was a smoker from age 14 through 30 but has not smoked since. No history of PA that he knows of. He states that his leg swelling is actually better than usual right now. No other complaints at this time. PD PAST MEDICAL HISTORY - Past Medical History Past Medical History: Yes Cardiovascular: Hypertension, Coronary artery disease, [place], Valve disorder, Other Respiratory: None Endocrine/Autoimmune: None GI: GERD : None Musculoskeletal: None Other Past Medical History: multiple myeloma - Past Surgical History Past Surgical History: Yes Ortho: Spine surgery Cardiovascular: CABG, Coronary stent - Present Medications Home Medications: Ambulatory Orders Medication Instructions Recorded Confirmed Nitroglycerin [Nitrostat] 0.4 mg SL PRN PRN 07/02/15 11/12/23 Docusate Sodium 250Mg Capsule 1 cap PO PRN PRN 12/25/21 11/12/23 [Colace 250Mg Capsule] Senna [Senokot] 8.6 mg PO TID PRN MDD titrate to 12/25/21 11/12/23 effect polyethylene glycoL 3350 [Miralax] 8.5 mg PO QPM PRN MDD titrate to 12/25/21 11/12/23 effect carvediloL [Coreg] 6.25 mg PO BID 03/21/23 11/12/23 dexAMETHasone [Decadron] 20 mg PO UD 06/18/23 11/12/23 fentaNYL [Fentanyl 25mcg patch] 50 mcg TD UD 09/17/23 11/12/23 Atorvastatin Calcium 40 mg PO HS 11/12/23 11/12/23 - Allergies Allergies/Adverse Reactions: Allergies Allergy/AdvReac Type Severity Reaction Status Date / Time valacyclovir AdvReac Hallucinati Verified 11/12/23 09:53 ons - Social History Does the pt smoke?: No Smoking Status: Never smoker Does the pt drink ETOH?: No Does the pt have substance abuse?: No - Immunizations Immunizations are current?: No Immunizations: TDAP >10years/unknown - POLST Patient has POLST: No PD ED PE NORMAL - Vitals Vital signs reviewed: Yes - General General: Alert and oriented X 3, Well developed/nourished, Other (Moderate respiratory distress, speaking in phrases.) - HEENT HEENT: Atraumatic, PERRL, EOMI, Moist mucous membranes - Neck Neck: Supple, no meningeal sign - Cardiac Cardiac: RRR, No murmur - Respiratory Respiratory: Other (Decreased air movement bilaterally, rales, moderate respiratory distress.) - Abdomen Abdomen: Soft, Non tender, Non distended - Derm Derm: Normal color, Warm and dry, No rash - Extremities Extremities: No deformity, Other (1+ pitting edema left lower leg, no edema right leg.) - Neuro Neuro: Alert and oriented X 3, hob machine operator 2-12 intact, Normal speech - Psych Psych: Normal mood, Normal affect Results - Vitals Vitals: Oxygen O2 Source BIPAP - EKG (time done) 1103 EKG releavant findings:: EKG personally interpreted by author of this note. Relevant findings are: Rate: Rate (enter#) (102) Rhythm: Sinus tachycardia [place]: Normal Intervals: Normal [place] QRS: Normal Ischemia: Normal ST segments, Non specific changes Compare to prior EKG: Old EKG unavailable Computer interpretation: Agree with computer - Labs Labs: Laboratory Tests 11/12/23 11/12/23 11/12/23 10:15 10:15 10:15 WBC 10.9 H RBC 3.89 L Hgb 12.2 L Hct 38.6 L MCV 99.2 H MCH 31.4 H MCHC 31.6 L RDW 14.4 Plt Count 198 MPV 10.1 Neut # (Auto) 9.5 H Lymph # (Auto) 0.7 L [place] # (Auto) 0.6 Eos # (Auto) 0.0 Baso # (Auto) 0.0 Absolute Nucleated RBC 0.00 Nucleated RBC % 0.0 Bld Gas Analysis Time Sample Site ABG pH ABG pCO2 ABG pO2 ABG HCO3 ABG Total CO2 ABG O2 Saturation ABG Base Excess Issa Test Respiration Rate O2 Delivery Device FiO2 EPAP Sodium 131 L Potassium 4.3 Chloride 98 L Carbon Dioxide 28 Anion Gap 5.0 L BUN 43 H Creatinine 0.9 Estimated GFR (MDRD) 81 L Glucose 115 H Calcium 9.4 Total Bilirubin 0.7 AST 21 ALT 14 Alkaline Phosphatase 47 Troponin I High Sens B-Natriuretic Peptide 2673 H Total Protein 10.0 H Albumin 4.1 Globulin 5.9 H Albumin/Globulin Ratio 0.7 L Lipase < 10 L 11/12/23 11/12/23 10:15 10:20 WBC RBC Hgb Hct MCV MCH MCHC RDW Plt Count MPV Neut # (Auto) Lymph # (Auto) [place] # (Auto) Eos # (Auto) Baso # (Auto) Absolute Nucleated RBC Nucleated RBC % Bld Gas Analysis Time 1020 Sample Site RIGHT RADIAL ABG pH 7.38 ABG pCO2 45 ABG pO2 141 H ABG HCO3 26.0 ABG Total CO2 27.3 ABG O2 Saturation 99 H ABG Base Excess 0.5 Issa Test POSITIVE Respiration Rate 12 O2 Delivery Device BiPAP FiO2 70.00 EPAP 5 Sodium Potassium Chloride Carbon Dioxide Anion Gap BUN Creatinine Estimated GFR (MDRD) Glucose Calcium Total Bilirubin AST ALT Alkaline Phosphatase Troponin I High Sens 346.7 H* B-Natriuretic Peptide Total Protein Albumin Globulin Albumin/Globulin Ratio Lipase - Rads (name of study) Chest XR Relevant Findings:: Final report received, See rad report (cardiomegaly, pulmonary edema) PD Medical Decision Making - ED course Complexity details: reviewed old records, reviewed results, re-evaluated patient, considered differential, d/w patient, d/w dietitian consultant ED course: The pt was on a nonrebreather mask when he arrived, with sats 100%. He maintained sats in the low to mid 90's after being cut down to 5L per NC, but began working increasingly hard to breathe. We put him back on the NRB mask, but the pt kept pulling it off, and was becoming more agitated. I felt he needed more support, and explained to him that we would be putting him on BiPAP to support his breathing. The pt was still anxious, but agreeable, and ultimately, was able to be talked through the wearing of the mask, and improved significantly on BiPAP. His ABG showed a pH of 7.28, with pO2 141, and pCO2 normal. His O2 sat by pulse ox was 100%, and by ABG was 99%. He was much calmer. His CXR had showed pulmonary edema, so I ordered Lasix 80 mg. He had an elevated troponin, but without ischemic changes on EKG, and I suspected that this was from the CHF and aortic stenosis. The remainder of the pt's labs were unremarkable. I discussed the case with Dr. Griffin, who agreed to admit the pt to her service in the ICU. - Critical Care Time(min): 45 Comments: Critical care time was necessary, due to high probability of imminent decline and , secondary to respiratory failure in the setting of acute CHF exacerb ation and aortic stenosis. Time Includes: Direct patient care, Review records, Reassess patient, Document care, Coordinate care, Medical consult, See progress note Data interpretation: Labs, Pulse ox, ABG, CXR, Cardiac output Procedures included in critical care time: Ventilator mgmt Departure - Departure Disposition: 66 [facility] DC/Xfer Clinical Impression: CHF exacerbation Qualifiers: Heart failure type: unspecified Qualified Code(s): I50.9 - Heart failure, unspecified Respiratory failure Qualifiers: Chronicity: acute Respiratory failure complication: hypoxia Qualified Code(s): J96.01 - Acute respiratory failure with hypoxia Aortic stenosis Qualifiers: Cardiac valve disease etiology: etiology unspecified Qualified Code(s): I35.0 - Nonrheumatic aortic (valve) stenosis Condition: Critical Discharge Date/Time: 11/12/23 12:03
[2023-11-12] MEDS ORDERED: ACETAMINOPHEN 325 MG TABLET PO PRN (11:06)
[2023-11-12] MEDS ORDERED: ONDANSETRON 4 MG/2 ML VIAL IVP PRN (11:06)
[2023-11-12] MEDS: FUROSEMIDE 40 MG/4 ML VIAL IVP STA (11:11)
--- NOTE | 2023-11-12 11:13 | HISTORY & PHYSICAL EXAMINATION ---
Chief Complaint - Chief Complaint Chief Complaint: Can't breath History of Present Illness - Admitted From Admitted From:: ED - History Obtained From History obtained from: ED ED provider and the patient and at bedside - History of Present Illness HPI Comment/Other: This is an 83-year-old male with a history of multiple myeloma diagnosed in 2020 and he goes to the [facility] clinic, is followed by Dr. Nixon, and gets chemotherapy. His last chemotherapy and DEXA was yesterday. In fall he was diagnosed with worsening valvular disease by his Cardi ologist and started having a workup for TAVR. He is still scheduled to undergo stress testing on 12/03/23, before he is cleared for TAVR. He has a remote history of CAD, had coronary stenting and CABG. He had a rhinovirus infection about a month and a half ago. Patient presented to the ER with complaints of severe orthopnea and PND and 2 to 3 days of dyspnea on exertion. He states he takes all his medicines as prescribed. He usually is not on home oxygen. In the ER he was brought in wearing a rebreather mask, started by paramedics and the mask was changed to nasal cannula O2 and he became tachypneic with resp rate 26. He then required to be put on BiPAP in the ER. His workup shows a chest x-ray with pulmonary edema and cardiomegaly. Labs show sodium 131, BUN/creatinine normal, BNP 2600, troponin 346>> 426 on repeat after 1 hour. His EKG shows sinus tachycardia, inferior Q waves, left IVCD with LVH and strain pattern. He was given IV Lasix 80 mg x 1. He was ordered to get Morphine and Lovenox and refused those two, in the ED. The ED provider then spoke to me about this patient for admission. The patient denies any chest pain, palpitations, syncope or leg edema. He has n ever had this type of exacerbation before he says. Patient is long-winded when answering questions and gets sidetracked and is a poor historian. Since he is tachypnea, sitting bolt upright, he speaks with 2 word sentences. The gives additional information at bedside. I asked the patient about his CODE BLUE wishes and he could not decide therefore by default he will Full Code. 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 Social History Notes: He moved from [place] to [facility] in 2012 to be . Due to weakness he stopped driving in August 2023. He has not smoked since age 30. He occasionally has a sip of wine. - Substance History Use: Uses substance without health or social issues: NONE - POLST Patient has POLST: No Meds/Allgy - Home Medications Home Medications: Ambulatory Orders Medication Instructions Recorded Confirmed lisinopriL [Lisinopril] 10 mg PO DAILY 03/03/13 11/11/23 Nitroglycerin [Nitrostat] 0.4 mg SL PRN PRN 07/02/15 11/12/23 Docusate Sodium 250Mg Capsule 1 cap PO PRN PRN 12/25/21 11/12/23 [Colace 250Mg Capsule] Senna [Senokot] 8.6 mg PO TID PRN MDD titrate to 12/25/21 11/12/23 effect polyethylene glycoL 3350 [Miralax] 8.5 mg PO QPM PRN MDD titrate to 12/25/21 11/12/23 effect carvediloL [Coreg] 6.25 mg PO BID 03/21/23 11/12/23 dexAMETHasone [Decadron] 20 mg PO UD 06/18/23 11/12/23 fentaNYL [Fentanyl 25mcg patch] 50 mcg TD UD 09/17/23 11/12/23 Atorvastatin Calcium 40 mg PO HS 11/12/23 11/12/23 - Allergies Allergies/Adverse Reactions: Allergies Allergy/AdvReac Type Severity Reaction Status Date / Time valacyclovir AdvReac Hallucinati Verified 11/12/23 09:53 ons Review of Systems - Constitutional Constitutional: reports: Fatigue - Cardiovascular Cariovascular: reports: Exertional dyspnea, Orthopnea - Respiratory Respiratory: reports: SOB at rest, SOB with exertion - All Other Systems All Other Systems: reports: Reviewed and negative Exam - Vital Signs Vital Signs: Vital Signs x48h Temp Pulse Resp BP Pulse Ox 11/12/23 11:00 36.8 C 100 22 159/106 H 96 11/12/23 10:51 106 H 11/12/23 10:47 106 H 26 H 11/12/23 10:40 104 H 22 149/106 H 98 11/12/23 10:36 103 H 11/12/23 09:53 36.4 C L 109 H 24 162/115 H 99 - Physical Exam General Appearance: positive: Moderate distress (Tachypneic, speaks in 2 word sentences then needs to take a breath, is wearing BiPAP mask) Eyes Bilateral: positive: Normal inspection, No lid inflammation ENT: positive: ENT inspection nml, No signs of dehydration Neck: positive: Nml inspection, No JVD Respiratory: positive: Rales, Other (Kyphosis) Cardiovascular: positive: Tachycardia (Very distant heart sounds, 1/6 systolic murmur and 1/6 diastolic murmur) Abdomen: positive: Non-tender, No organomegaly Skin: positive: Warm, Dry Extremities: positive: Non-tender, No pedal edema Neurologic/Psychiatric: positive: Oriented x3, CN's nml (2-12), Motor nml, Other (Poor memory. Is long-winded and gets sidetracked) Conclusion/Plan - Problem List (1) Acute respiratory failure with hypoxia Conclusion/Plan: Patient presented by ambulance on supplemental O2 via mask, was tried on O2 via nasal cannula which showed that he was desaturating and becoming worse in respiratory distress. He has been started on BiPAP in the ER Plan: Admit to the ICU, since he needs BIPAP Continue with BiPAP and suppl O2, titrating down as possible. with target saturation 92% minimum Treat the underlying pulmonary edema (2) Pulmonary edema Conclusion/Plan: His chest x-ray is consistent with pulmonary edema and most likely this is from worsening aortic stenosis but could be from systolic heart failure or it could be noncardiac pulmonary edema from a diffuse pulmonary process Plan: Obtain troponins to rule out an UT as the cause Obtain respiratory PCR to rule out COVID and other pulmonary diseases as the cause of CXR findings (Radiologist read this and also possibly consistent with viral infection) Continue IV Lasix BID, and follow I's and O's and daily weights Follow BMP and magnesium and BNP daily Continue with supplemental O2 as above in #1 Give as needed morphine IV pushes for dyspnea Obtain latest Echo report from his [facility], Dr Timi Crews (3) Aortic stenosis Conclusion/Plan: According to the ED provider report to me, patient is followed in [place] by digital forensic analyst who is evaluating if he is appropriate to have a TAVR We have no Echo done in this hospital on this patient whatsoever Plan: Await reconciled med list and start his usual cardiac meds (4) Multiple myeloma Conclusion/Plan: He is followed by Dr. Nixon in [facility] and gets chemotherapy. He presents with a CBC showing hemoglobin of 12.7 Plan: Follow CBC daily Transfuse if hemoglobin less than 7 (5) CAD (coronary artery disease) Conclusion/Plan: According to his EMR he is 14 stents and is status post CABG Plan: Await the reconciled med list and restart his cardiac meds - Lab Results Fish Bones: 11/12/23 10:15 11/12/23 10:15 - Diagnostic Imaging Results Diagnostic Imaging Results: positive: Final report reviewed - Other Other Results/Comments: Attestation: The patient is expected to be hospitalized for greater than 2 midnights and is expected to be discharged or transferred to another facility within 96 hours: Yes.
[2023-11-12] MEDS ORDERED: MORPHINE 2 MG/ML CARPUJECT IVP PRN (11:24)
[2023-11-12 12:34] LABS: B. PARAPERTUSSIS- RESP PCR PAN NOT DETECTED; B. PERTUSSIS- RESP PCR PANEL NOT DETECTED; C. PNEUMONIAE- RESP PCR PANEL NOT DETECTED; CORONAVIRUS 229E-RESP PCR NOT DETECTED; CORONAVIRUS HKU1-RESP PCR NOT DETECTED; CORONAVIRUS NL63-RESP PCR NOT DETECTED; CORONAVIRUS OC43-RESP PCR NOT DETECTED; HUMAN METAPNEUMOVIRUS NOT DETECTED; INFLUENZA A- RESP PCR PANEL NOT DETECTED; INFLUENZA B - RESP PCR PANEL NOT DETECTED; M. PNEUMONIAE- RESP PCR PANEL NOT DETECTED; PARAINFLUENZA VIRUS 1 NOT DETECTED; PARAINFLUENZA VIRUS 2 NOT DETECTED; PARAINFLUENZA VIRUS 3 NOT DETECTED; PARAINFLUENZA VIRUS 4 NOT DETECTED; RHINOVIRUS/ENTEROVIRUS NOT DETECTED; RSV- RESP PCR PANEL NOT DETECTED; SARS-CoV-2 -RESP PCR PANEL NOT DETECTED
[2023-11-12] MEDS: LORazepam 2 MG/ML VIAL IVP STA (12:38)
[2023-11-12] MEDS: ENOXAPARIN 40 MG/0.4 ML SYRINGE SUBQ SCH (12:53)
[2023-11-12] MEDS ORDERED: fentaNYL 25 MCG PATCH TOP SCH (14:00)
--- NOTE | 2023-11-12 15:20 | PHARMACY PROGRESS NOTE ---
- Best Possible Medication History Admit Date and Time: 11/12/23 1106 Processed by: Pharmacy Medications reviewed in ED?: Yes Medication History completed: Yes Patient Interview: Pt unable to participate Secondary Source(s): Pharmacy records, Insurance records As the person ultimately responsible for medication therapy, providers are able to order a medication from an existing home medication list in [facility] via the "Reconcile Routine" prior to Confirmation of that medication by direct support specialist. Such practice is discouraged except when the physician, in their clinical judgment, deems that a medical need exists for a medication without regard to previous use.
[2023-11-12] MEDS: FUROSEMIDE 20 MG/2 ML VIAL IVP SCH (15:24)
[2023-11-12] MEDS ORDERED: polyethylene glycoL 3350 17 GM PACKET PO PRN (15:53)
[2023-11-12] MEDS ORDERED: SENNA 8.6 MG TABLET PO PRN (15:53)
[2023-11-12] MEDS ORDERED: NITROGLYCERIN SL 0.4 MG TABLET SL PRN (15:53)
[2023-11-12] MEDS ORDERED: ENOXAPARIN 40 MG/0.4 ML SYRINGE SUBQ SCH (16:00)
[2023-11-12] MEDS: NITROGLYCERIN 2% PASTE TOP SCH (16:40)
[2023-11-12] MEDS: ATORVASTATIN 40 MG TABLET PO SCH (16:41)
[2023-11-12] MEDS: ENOXAPARIN 60 MG/0.6 ML SYRINGE SUBQ SCH (16:41)
[2023-11-12] MEDS: SODIUM CHLORIDE FLUSH 0.9% 10 ML SYRINGE IVP SCH (16:42)
[2023-11-12] MEDS: ASPIRIN CHEW 81 MG TABLET PO SCH (16:42)
[2023-11-12] MEDS: POTASSIUM CHLOR 10 MEQ/100 ML 10 MEQ/100 ML BAG IV SCH (18:03)
[2023-11-12] MEDS: SODIUM CHLORIDE FLUSH 0.9% 10 ML SYRINGE IVP PRN (20:12)
[2023-11-12] MEDS ORDERED: ATORVASTATIN 40 MG TABLET PO SCH (21:00)
[2023-11-12] MEDS ORDERED: carvediloL 3.125 MG TABLET PO SCH (21:00)
[2023-11-12] MEDS: FAMOTIDINE 20 MG TABLET PO SCH (21:08)
[2023-11-12] MEDS: METOPROLOL SUCCINATE 25 MG TABLET PO SCH (21:08)
[2023-11-12 21:46] LABS: MAGNESIUM 1.8 mg/dL (1.7-2.3); PHOSPHORUS 4.4 mg/dL (2.5-5.0); POTASSIUM 4.2 mmol/L (3.5-4.5)
[2023-11-12] MEDS: MAGNESIUM SULFATE 2 GRAM 2 GM/50 ML BAG IV ONE (22:34)
[2023-11-13] MEDS ORDERED: ZINC OXIDE 20% OINT 30 GM TUBE TOP PRN (00:28)
[2023-11-13] MEDS: LIDOCAINE 2% URO-JET 5 ML SYRINGE UR ONE (00:33)
[2023-11-13 04:34] LABS: HCT - HEMATOCRIT 33.2 % (42.0-52.0); HGB - HEMOGLOBIN 10.8 g/dL (14.0-18.0); MEAN CORPUSCULAR HEMOGLOBIN 31.6 pg (27.0-31.0); MEAN CORPUSCULAR HGB CONC 32.5 g/dL (32.0-36.0); MEAN CORPUSCULAR VOLUME 97.1 fL (80.0-94.0); RED BLOOD COUNT 3.42 10^6/uL (4.70-6.10); RED CELL DISTRIBUTION WIDTH 14.6 % (12.0-15.0); WHITE BLOOD COUNT 6.8 x10^3/uL (4.8-10.8)
[2023-11-13 04:40] LABS: CALCIUM, IONIZED 1.06 mmol/L (1.15-1.33); VBG PH 7.455 (7.31-7.41)
[2023-11-13 04:54] LABS: CALCIUM 8.7 mg/dL (8.5-10.3); CREATININE 0.9 mg/dL (0.6-1.3); MAGNESIUM 2.1 mg/dL (1.7-2.3); PHOSPHORUS 4.2 mg/dL (2.5-5.0)
[2023-11-13 05:20] LABS: CHOL/HDL RATIO 3.7 (<5.0); CHOLESTEROL 101 mg/dL; HDL CHOLESTEROL 27 mg/dL; LDL CHOLESTEROL,CALCULATED 60 mg/dL; LDL/HDL RATIO 2.2 (<3.6); TRIGLYCERIDES 69 mg/dL (48-352); VLDL CHOLESTEROL 14 mg/dL
[2023-11-13] MEDS: CALCIUM GLUC 1,000MG/50ML-NACL 1,000 MG/50 ML BAG IV ONE (06:21)
[2023-11-13] MEDS: ASPIRIN CHEW 81 MG TABLET PO SCH (09:41)
[2023-11-13] MEDS: SPIRONOLACTONE 25 MG TABLET PO SCH (09:42)
[2023-11-13] MEDS: fentaNYL 50 MCG PATCH TOP SCH (09:44)
--- NOTE | 2023-11-13 11:25 | PROVIDER PROGRESS NOTE ---
Hospitalist Cross-cover Note - Cross-Cover Note Cross-Cover Note: Patient's labs returned showing a first troponin of 300>> 400 an hour later. By 6 hours trop had risen to 800. I had reviewed his EKG which shows sinus tachy, and LVH with strain but also lateral T wave flattening Impression: Acute NSTEMI Plan: Increase Lovenox to 1 mg/kilogram twice daily, start now Give 4 baby aspirin chewable now Start Nitropaste Give statin now and check fasting a.m. lipids and treat per goal-directed guidelines Continue supplemental O2 and IV diuretics Will change his Carvedilol to Toprol for its better heart rate-slowing effect I informed the patient in his bed, and by phone, of this finding and that he will likely need to transferred to a facility with higher level of care CRITICAL CARE TIME SPENT: 30 min
[2023-11-13 14:20] LABS: CALCIUM, IONIZED 1.09 mmol/L (1.15-1.33); VBG PH 7.408 (7.31-7.41)
--- NOTE | 2023-11-13 15:32 | PROVIDER PROGRESS NOTE ---
Subjective - Subjective Pt reports feeling: Improved (Less SOB, able to speak in complete sentences, is wearing O2 suppl) Objective - Vital Signs/Intake & Output Reviewed Vital Signs: Yes Vital Signs: Vital Signs Temp Pulse Resp BP Pulse Ox O2 Flow Rate 11/13/23 14:05 21 98 1 11/13/23 13:45 110/71 11/13/23 13:00 80 18 110/71 99 2 11/13/23 12:00 83 25 H 120/74 93 11/13/23 11:33 36.8 C Intake & Output: Intake & Output 11/10/23 11/11/23 11/12/23 11/13/23 23:59 23:59 23:59 23:59 Intake Total 188.333 860 Output Total 3045 900 Balance -2856.667 -40 - Objective General Appearance: positive: No acute distress, Alert Eyes Bilateral: positive: Normal inspection, No lid inflammation ENT: positive: No signs of dehydration, Other (Wearing O2 n.c.) Neck: positive: Nml inspection Respiratory: positive: Rales Cardiovascular: positive: Regular rate & rhythm, Systolic murmur Abdomen: positive: Non-tender, Nml bowel sounds, No distention Skin: positive: Warm, Dry Extremities: positive: Other (1+ edema) Neurologic/Psychiatric: positive: Motor nml, Disoriented to person, Other (Poor memry) - Lab Results Fish Bones: 11/14/23 04:21 11/14/23 09:21 Other Labs: Lab Results x24hrs 11/13/23 11/13/23 11/13/23 Range/Units 14:02 10:07 04:24 WBC (4.8-10.8) x10^3/uL RBC (4.70-6.10) 10^6/uL Hgb (14.0-18.0) g/dL Hct (42.0-52.0) % MCV (80.0-94.0) fL MCH (27.0-31.0) pg MCHC (32.0-36.0) g/dL RDW (12.0-15.0) % Plt Count (130-450) 10^3/uL MPV (7.4-11.4) fL VBG pH 7.408 (7.31-7.41) Ionized Calcium 1.09 L (1.15-1.33) mmol/L Sodium (135-145) mmol/L Potassium (3.5-4.5) mmol/L Chloride (101-111) mmol/L Carbon Dioxide (21-32) mmol/L Anion Gap (6-13) BUN (6-20) mg/dL Creatinine (0.6-1.3) mg/dL Estimated GFR (MDRD) (>89) Glucose (74-104) mg/dL Calcium (8.5-10.3) mg/dL Phosphorus (2.5-5.0) mg/dL Magnesium (1.7-2.3) mg/dL Troponin I High Sens 881.1 H* (2.3-19.7) ng/L B-Natriuretic Peptide 1801 H (5-100) pg/mL Triglycerides (48-352) mg/dL Cholesterol ( - 200) mg/dL LDL Cholesterol, Calc ( - 129) mg/dL VLDL Cholesterol mg/dL HDL Cholesterol (60 - ) mg/dL LDL/HDL Ratio (<3.6) Cholesterol/HDL Ratio (<5.0) 11/13/23 11/13/23 11/13/23 Range/Units 04:24 04:24 04:24 WBC (4.8-10.8) x10^3/uL RBC (4.70-6.10) 10^6/uL Hgb (14.0-18.0) g/dL Hct (42.0-52.0) % MCV (80.0-94.0) fL MCH (27.0-31.0) pg MCHC (32.0-36.0) g/dL RDW (12.0-15.0) % Plt Count (130-450) 10^3/uL MPV (7.4-11.4) fL VBG pH 7.455 H (7.31-7.41) Ionized Calcium 1.06 L (1.15-1.33) mmol/L Sodium (135-145) mmol/L Potassium (3.5-4.5) mmol/L Chloride (101-111) mmol/L Carbon Dioxide (21-32) mmol/L Anion Gap (6-13) BUN (6-20) mg/dL Creatinine (0.6-1.3) mg/dL Estimated GFR (MDRD) (>89) Glucose (74-104) mg/dL Calcium (8.5-10.3) mg/dL Phosphorus (2.5-5.0) mg/dL Magnesium (1.7-2.3) mg/dL Troponin I High Sens 1139.5 H* (2.3-19.7) ng/L B-Natriuretic Peptide (5-100) pg/mL Triglycerides 69 (48-352) mg/dL Cholesterol 101 ( - 200) mg/dL LDL Cholesterol, Calc 60 ( - 129) mg/dL VLDL Cholesterol 14 mg/dL HDL Cholesterol 27 L (60 - ) mg/dL LDL/HDL Ratio 2.2 (<3.6) Cholesterol/HDL Ratio 3.7 (<5.0) 11/13/23 11/13/23 11/12/23 Range/Units 04:24 04:24 21:14 WBC 6.8 (4.8-10.8) x10^3/uL RBC 3.42 L (4.70-6.10) 10^6/uL Hgb 10.8 L (14.0-18.0) g/dL Hct 33.2 L (42.0-52.0) % MCV 97.1 H (80.0-94.0) fL MCH 31.6 H (27.0-31.0) pg MCHC 32.5 (32.0-36.0) g/dL RDW 14.6 (12.0-15.0) % Plt Count 154 (130-450) 10^3/uL MPV 10.0 (7.4-11.4) fL VBG pH (7.31-7.41) Ionized Calcium (1.15-1.33) mmol/L Sodium 135 (135-145) mmol/L Potassium 4.0 4.2 (3.5-4.5) mmol/L Chloride 99 L (101-111) mmol/L Carbon Dioxide 31 (21-32) mmol/L Anion Gap 5.0 L (6-13) BUN 40 H (6-20) mg/dL Creatinine 0.9 (0.6-1.3) mg/dL Estimated GFR (MDRD) 81 L (>89) Glucose 108 H (74-104) mg/dL Calcium 8.7 (8.5-10.3) mg/dL Phosphorus 4.2 4.4 (2.5-5.0) mg/dL Magnesium 2.1 1.8 (1.7-2.3) mg/dL Troponin I High Sens (2.3-19.7) ng/L B-Natriuretic Peptide (5-100) pg/mL Triglycerides (48-352) mg/dL Cholesterol ( - 200) mg/dL LDL Cholesterol, Calc ( - 129) mg/dL VLDL Cholesterol mg/dL HDL Cholesterol (60 - ) mg/dL LDL/HDL Ratio (<3.6) Cholesterol/HDL Ratio (<5.0) 11/12/23 11/12/23 Range/Units 15:07 15:07 WBC (4.8-10.8) x10^3/uL RBC (4.70-6.10) 10^6/uL Hgb (14.0-18.0) g/dL Hct (42.0-52.0) % MCV (80.0-94.0) fL MCH (27.0-31.0) pg MCHC (32.0-36.0) g/dL RDW (12.0-15.0) % Plt Count (130-450) 10^3/uL MPV (7.4-11.4) fL VBG pH (7.31-7.41) Ionized Calcium (1.15-1.33) mmol/L Sodium (135-145) mmol/L Potassium 3.9 (3.5-4.5) mmol/L Chloride (101-111) mmol/L Carbon Dioxide (21-32) mmol/L Anion Gap (6-13) BUN (6-20) mg/dL Creatinine (0.6-1.3) mg/dL Estimated GFR (MDRD) (>89) Glucose (74-104) mg/dL Calcium (8.5-10.3) mg/dL Phosphorus (2.5-5.0) mg/dL Magnesium (1.7-2.3) mg/dL Troponin I High Sens 832.3 H* (2.3-19.7) ng/L B-Natriuretic Peptide (5-100) pg/mL Triglycerides (48-352) mg/dL Cholesterol ( - 200) mg/dL LDL Cholesterol, Calc ( - 129) mg/dL VLDL Cholesterol mg/dL HDL Cholesterol (60 - ) mg/dL LDL/HDL Ratio (<3.6) Cholesterol/HDL Ratio (<5.0) Assessment/Plan - Problem List (1) Acute non-ST elevation myocardial infarction (NSTEMI) Impression: Patient's labs returned showing troponins of 300>> 400>> 800 >> 1100 this a.m. be fore decreasing to [id number] His EKG had shown LVH with strain but also lateral T wave flattening Today he can remember that he was having chest pain on Sat, came in on Plan: Increased Lovenox to 1 mg/kilogram twice daily, start now Give 4 baby aspirin chewable now Start Nitropaste Cont statin now and check fasting a.m. lipids and treat per goal-directed guidelines Continue supplemental O2 and IV diuretics Ichanged his Carvedilol to Toprol for its better heart rate-slowing effect I informed the patient in his bed, and by phone, of this finding and that he will likely need to transferred to a facility with higher level of care (2) V-tach Impression: This morning patient had a 7-beat run of monomorphic V. tach @ [id number]. It was asymptomatic. This afternoon he had a 10 beat run of monomorphis V./ Tach@ rate 185. It was asymptomatic Plan: I started him on Amiodarone three-step iv infusion Remain in ICU (3) Acute respiratory failure with hypoxia Conclusion/Plan: Patient presented by ambulance on supplemental O2 via mask, was tried on O2 via nasal cannula which made him worse in respiratory distress. He was then started on BiPAP in the ER. He was admitted to the ICU on BiPAP and by last night that was able to be titrated down to O2 by nasal cannula Plan: Remain in the ICU, due to VTach Would resume BiPAP if needed Cont to treat the underlying pulmonary edema (4) Pulmonary edema Conclusion/Plan: His chest x-ray was consistent with pulmonary edema and we had suspected it was from worsening aortic stenosis. Then I cycled his troponins and it showed he had an NSTEMI. We did get his last Echo report done 3 mos ago, which showed LVEF 35% Admission BNP was 2600 which is decreased to 1800 today (all labs were reviewed) Plan: Continue IV Lasix BID, and follow I's and O's and daily weights Follow BMP and magnesium and BNP daily Continue with supplemental O2 with target saturation 92% or above Give as needed morphine IV pushes for dyspnea (5) Acute on chronic systolic heart failure Conclusion/Plan: We requested records from his [employer] Maintainer in [place], Dr. Timi Crews. He had an Echo done just 3 months ago (August 2023) which showed LVEF of 35% and severe aortic stenosis Plan: As above in #4 I will not repeat an Echo here, since he needs to be transferred for workup of his acute IN (6) CAD (coronary artery disease) Conclusion/Plan: According to his EMR he is 14 stents and is status post CABG Plan: He is on new meds because of his acute NSTEMI and these will be continued (7) Aortic stenosis Conclusion/Plan: The patient was being evaluated if he is appropriate to have a TAVR. We requested records from his [employer] Maintainer in [place], Dr. Timi Crews. He had an Echo done just 3 months ago (August 2023) which showed severe aortic stenosis Plan: Continue diuretics, beta-jordana. No afterload site medical director in the form of HILARY or ARB is indicated, given he has a fixed afterload from his (8) AMS Yesterday the patient was confused, poor historian, long-winded and speaking off topic. Today the told me that happens when he gets his dexamethasone night before his chemotherapy which she received on Saturday, 2 days ago Today his memory is better but he is still speaking slightly off target Plan: Continue to provide supplemental O2 to prevent hypoxia Continue meds that provide him with a stable blood pressure (9) Multiple myeloma Conclusion/Plan: He is followed by Dr. Nixon in [facility] On[place] clinic and gets chemotherapy. He got chemotherapy plus dexamethasone just 2 days ago. He presents with a CBC showing hemoglobin of 12.7 Plan: Follow CBC daily Transfuse if hemoglobin less than 7
[2023-11-13] MEDS: AMIODARONE 150 MG/100 ML 100 ML IV ONE (16:01)
[2023-11-13] MEDS: CALCIUM CARBONATE CHEW 500 MG TABLET PO SCH (16:08)
[2023-11-13] MEDS: AMIODARONE 360 MG/200 ML 200 ML IV ONE (16:16)
[2023-11-13] MEDS: ATORVASTATIN 40 MG TABLET PO SCH (21:17)
[2023-11-13] MEDS: AMIODARONE 360 MG/200 ML 200 ML IV SCH (22:11)
[2023-11-14 00:31] LABS: CALCIUM, IONIZED 1.08 mmol/L (1.15-1.33); VBG PH 7.481 (7.31-7.41)
[2023-11-14] MEDS: CALCIUM CARBONATE CHEW 500 MG TABLET PO SCH ×2 (04:29→08:50)
[2023-11-14 04:32] LABS: HCT - HEMATOCRIT 31.8 % (42.0-52.0); HGB - HEMOGLOBIN 10.1 g/dL (14.0-18.0); MEAN CORPUSCULAR HGB CONC 31.8 g/dL (32.0-36.0); MEAN CORPUSCULAR VOLUME 97.5 fL (80.0-94.0); MEAN PLATELET VOLUME 10.2 fL (7.4-11.4); RED BLOOD COUNT 3.26 10^6/uL (4.70-6.10); RED CELL DISTRIBUTION WIDTH 14.3 % (12.0-15.0); WHITE BLOOD COUNT 4.3 x10^3/uL (4.8-10.8)
[2023-11-14 06:22] LABS: CALCIUM, IONIZED 1.09 mmol/L (1.15-1.33); VBG PH 7.485 (7.31-7.41)
[2023-11-14 10:11] LABS: CALCIUM 9.1 mg/dL (8.5-10.3); CREATININE 0.9 mg/dL (0.6-1.3); MAGNESIUM 1.9 mg/dL (1.7-2.3); POTASSIUM 3.9 mmol/L (3.5-4.5)
--- NOTE | 2023-11-14 11:59 | Discharge Plan ---
Discharge Plan Problem Reviewed?: Yes Disposition: 02 Transfer Acute Care Hosp No Smoking: If you smoke, Please STOP! Call for help.
--- NOTE | 2023-11-14 12:00 | DISCHARGE SUMMARY ---
Discharge Summary Admit Date: 11/12/23 Discharge Date: 11/14/23 Discharging Provider: Dr Lani Griffin Primary Care Provider: DR Ji Yates Condition at Discharge: Critical Discharge Disposition: 02 Transfer Acute Care Hosp Discharge Facility Name: [facility] - DIAGNOSES Admission Diagnoses: (1) Acute respiratory failure with hypoxia (2) Pulmonary edema (3) Aortic stenosis (4) Multiple myeloma (5) CAD (coronary artery disease) - HPI History of Present Illness: This is an 83-year-old male with a history of multiple myeloma diagnosed in 2020 and he goes [place] [facility], is followed by Dr. Nixon, and gets chemotherapy. His last chemotherapy and DEXA was yesterday. In fall he was diagnosed with worsening valvular disease by his Ladies Attendant and started having a workup for TAVR. He is still scheduled to undergo stress testing on 12/03/23, before he is cleared for TAVR. He has a remote history of CAD, had coronary stenting and CABG. He had a rhinovirus infection about a month and a half ago. Patient presented to the ER with complaints of severe orthopnea and PND and 2 to 3 days of dyspnea on exertion. He states he takes all his medicines as prescribed. He usually is not on home oxygen. In the ER he was brought in wearing a rebreather mask, started by paramedics and the mask was changed to nasal cannula O2 and he became tachypneic with resp rate 26. He then required to be put on BiPAP in the ER. His workup shows a chest x-ray with pulmonary edema and cardiomegaly. Labs show sodium 131, BUN/creatinine normal, BNP 2600, troponin 346>> 426 on repeat after 1 hour. His EKG shows sinus tachycardia, inferior Q waves, left IVCD with LVH and strain pattern. He was given IV Lasix 80 mg x 1. He was ordered to get Morphine and Lovenox and refused those two, in the ED. The ED provider then spoke to me about this patient for admission. The patient denies any chest pain, palpitations, syncope or leg edema. He has never had this type of exacerbation before he says. Patient is long-winded when answering questions and gets sidetracked and is a poor historian. Since he is tachypnea, sitting bolt upright, he speaks with 2 word sentences. The gives additional information at bedside. I asked the patient about his CODE BLUE wishes and he could not decide therefore by default he will Full Code. - HOSPITAL COURSE Hospital Course: (1) Acute non-ST elevation myocardial infarction (NSTEMI) Patient's labs returned showing troponins of 300>> 400>> 800 >> 1100 the next morning, then fell >> 881. His EKG showed LVH with strain and lateral T wave flattening. By his 2nd day he remembered that he had erin having chest pain on Sat, came in on . When his troponin more than doubled, his medications were all adjusted, he was put on Lovenox therapeutic dose twice daily, received 4 baby aspirin stat then 81 mg daily, Lipitor 80 mg stat, Nitropaste topical was started and his Carvedilol was changed to Toprol for better heart rate control. I reached out to [facility] to have him transferred. There were no beds available, he was finally accepted in transfer on 11/14/2023 to [facility] (2) V-tach On Day 2 of his MT, he had a 7-beat run of monomorphic V. tach @ rate 160 and later a 10 beat run of monomorphic V. Tach@ rate 185. These were asymptomatic. His K and Mg were normal. He was put on Amiodarone three-step iv infusion, and transferred on this. (3) Acute respiratory failure with hypoxia Patient presented by ambulance on supplemental O2 via mask, was tried on O2 via nasal cannula which made him worse in respiratory distress. He was then started on BiPAP in the ER. He was admitted to the ICU on BiPAP. With diuresis, he was able to be titrated down to O2 by nasal cannula (4) Flash pulmonary edema His chest x-ray was consistent with pulmonary edema and we had suspected it was from worsening aortic stenosis. Then his troponins showed he had ruled in for an NSTEMI. Admission BNP was 2600 which is decreased with diuresis. We did get his last Echo report done 3 mos ago, which showed LVEF 35%. WE had no Aircraft Mechanic while he was here, to obtain an Echo. (5) Acute on chronic systolic heart failure We requested records from his Ladies Attendant in [place], Dr. Timi Crews, and received an Echo report. From Echo done 3 months previously, his LVEF was 35% and it reported severe aortic stenosis (6) CAD (coronary artery disease) He reported having a total of 14 stents and also had a CABG (7) Aortic stenosis The patient was being evaluated to have a TAVR. Records from his Ladies Attendant in [place], Dr. Timi Crews, were requested and we received just an Echo report, from Echo done 3 months previously, which showed severe aortic stenosis. (8) AMS At admission, the patient was confused, a very poor historian, was speaking off topic. The reported that this happens when he gets his dexamethasone during chemotherapy which she received the day before admission. In addition, we felt that his hypoxia and distress added to the confusion. He became more alert the following day, when no longer in distress. However, he had a poor memory. (9) Poor memory After hypoxia improved and he stabilized overall, he continued to have a very poor memory, could not remember what we discussed the previous day and was coming up with excuses for that. He started to fill out a POLST form with the help of his stepdaughter, however in my opinion, he does not have capacity to make decisions, and needs a cognitive evaluation and Neurology referral. (10) Multiple myeloma He is followed by Dr. Nixon in [facility] [place] [place] and gets chemotherapy. He got chemotherapy plus dexamethasone the day before admission. His CBC was stable while here. - ALLERGIES Allergies/Adverse Reactions: Allergies Allergy/AdvReac Type Severity Reaction Status Date / Time valacyclovir AdvReac Hallucinati Verified 11/12/23 09:53 ons - MEDICATIONS Home Medications: Ambulatory Orders Medication Instructions Recorded Confirmed Nitroglycerin [Nitrostat] 0.4 mg SL PRN PRN 07/02/15 11/12/23 Docusate Sodium 250Mg Capsule 1 cap PO PRN PRN 12/25/21 11/12/23 [Colace 250Mg Capsule] Senna [Senokot] 8.6 mg PO TID PRN MDD titrate to 12/25/21 11/12/23 effect polyethylene glycoL 3350 [Miralax] 8.5 mg PO QPM PRN MDD titrate to 12/25/21 11/12/23 effect carvediloL [Coreg] 6.25 mg PO BID 03/21/23 11/12/23 dexAMETHasone [Decadron] 20 mg PO UD 09/26/23 02/20/24 fentaNYL [Fentanyl 25mcg patch] 50 mcg TD UD 09/17/23 11/12/23 Atorvastatin Calcium 40 mg PO HS 11/12/23 11/12/23 - PHYSICAL EXAM AT DISCHARGE General Appearance: positive: No acute distress, Alert Eyes Bilateral: positive: Normal inspection, EOMI ENT: positive: ENT inspection nml, No signs of dehydration, Other (wearing O2 n.c.) Neck: positive: Nml inspection, No JVD Respiratory: positive: No respiratory distress, Breath sounds nml Cardiovascular: positive: Regular rate & rhythm, Systolic murmur Abdomen: positive: Non-tender, Nml bowel sounds, No distention Skin: positive: Warm, Dry Extremities: positive: Non-tender, Other (Trace pedal edema) Neurologic/Psychiatric: positive: CN's nml (2-12), Motor nml, Disoriented to person, Disoriented to place, Other (Poor memory) - LABS Result Diagrams: 11/14/23 04:21 11/14/23 09:21 - DIAGNOSTIC IMAGING Diagnostic Imaging Results: Final report reviewed - TIME SPENT Time Spent in Discharge (Minutes): 50
[2023-11-14 15:44] VITALS: BP 108/78; O2SAT 95
[2023-11-18] MEDS ORDERED: dexAMETHasone 4 MG TABLET PO SCH (09:00)
== END 2023-11-14 15:15 | disposition short-term general hospital (02) | DRG 280 ==
LOC: EDUNIT# → ED 09:43 → ICU 11:06
PROVIDERS: ADMIT Internal Medicine; ATTEND Internal Medicine
PROC: 5A09357 Assistance with Respiratory Ventilation, Less than 24 Consecutive Hours, Continuous Positive Airway Pressure (ICD-10-PCS; principal; 2023-11-12)
DX: I21.4 Non-ST elevation (NSTEMI) myocardial infarction (principal); I50.23 Acute on chronic systolic (congestive) heart failure; J96.01 Acute respiratory failure with hypoxia; C90.00 Multiple myeloma not having achieved remission; I47.20 Ventricular tachycardia, unspecified; I11.0 Hypertensive heart disease with heart failure; I35.0 Nonrheumatic aortic (valve) stenosis; Z11.52 Encounter for screening for COVID-19; R41.3 Other amnesia; I25.10 Atherosclerotic heart disease of native coronary artery without angina pectoris; R41.82 Altered mental status, unspecified; Z79.60 Long term (current) use of unspecified immunomodulators and immunosuppressants; Z87.891 Personal history of nicotine dependence; Z95.1 Presence of aortocoronary bypass graft; Z95.5 Presence of coronary angioplasty implant and graft; Z53.29 Procedure and treatment not carried out because of patient's decision for other reasons
CPT/HCPCS: 36415; 36600; 71045; 80048; 80053; 80061; 82330; 82803; 83690; 83721; 83735; 83880; 84100; 84132; 84484; 85025; 85027; 87150; 87633; 93005; 94640; 94660; 99284; 99285; A9270; J0282; J1650

== ENCOUNTER → 2023-11-25 | Outpatient (CLI) | payer MEDICARE | LOC: PC 08:00 | PROVIDERS: ATTEND Nurse Practitioner Adult Health | DX: Z51.5 Encounter for palliative care (principal); G89.3 Neoplasm related pain (acute) (chronic); C90.00 Multiple myeloma not having achieved remission; I50.22 Chronic systolic (congestive) heart failure; I35.0 Nonrheumatic aortic (valve) stenosis; Z71.89 Other specified counseling; Z66 Do not resuscitate | CPT/HCPCS: 99215 ==

== ENCOUNTER → 2023-12-22 | Outpatient (CLI) | payer MEDICARE | LOC: PC 08:00 | PROVIDERS: ATTEND Nurse Practitioner Adult Health | DX: Z51.5 Encounter for palliative care (principal); C90.00 Multiple myeloma not having achieved remission | CPT/HCPCS: 99426 ==

== ENCOUNTER 2024-01-31 10:54 | Outpatient (CLI) | payer MEDICARE ==
[2024-01-31 11:11] LABS: BASOPHILS % (AUTO) 0.4 %; EOSINOPHILS # (AUTO) 0.2 10^3/uL (0.0-0.7); EOSINOPHILS % (AUTO) 2.9 %; HCT - HEMATOCRIT 33.5 % (42.0-52.0); HGB - HEMOGLOBIN 10.3 g/dL (14.0-18.0); LYMPHOCYTES # (AUTO) 0.7 10^3/uL (1.5-3.5); LYMPHOCYTES % (AUTO) 13.6 %; MEAN CORPUSCULAR HEMOGLOBIN 31.3 pg (27.0-31.0); MEAN CORPUSCULAR HGB CONC 30.7 g/dL (32.0-36.0); MEAN CORPUSCULAR VOLUME 101.8 fL (80.0-94.0); MEAN PLATELET VOLUME 9.8 fL (7.4-11.4); MONOCYTES # (AUTO) 0.4 10^3/uL (0.0-1.0); MONOCYTES % (AUTO) 6.8 %; NEUTROPHILS # (AUTO) 3.9 10^3/uL (1.5-6.6); NEUTROPHILS % (AUTO) 75.9 %; PLT - PLATELET COUNT 197 10^3/uL (130-450); RED BLOOD COUNT 3.29 10^6/uL (4.70-6.10); RED CELL DISTRIBUTION WIDTH 14.1 % (12.0-15.0); WHITE BLOOD COUNT 5.1 x10^3/uL (4.8-10.8)
[2024-01-31 11:26] LABS: ALBUMIN 3.6 g/dL (3.2-5.5); ALBUMIN/GLOBULIN RATIO 0.6 (1.0-2.2); BILIRUBIN,TOTAL 0.5 mg/dL (0.2-1.0); CALCIUM 9.7 mg/dL (8.5-10.3); MAGNESIUM 1.8 mg/dL (1.7-2.3); POTASSIUM 4.4 mmol/L (3.5-4.5); TOTAL PROTEIN 9.6 g/dL (6.4-8.9)
[2024-01-31 11:42] LABS: THYROID STIMULATING HORMONE 1.97 uIU/mL (0.34-5.60)
== END 2024-01-31 10:55 | disposition home or self-care (01) ==
LOC: LAB 10:54
PROVIDERS: ATTEND Internal Medicine
DX: I50.20 Unspecified systolic (congestive) heart failure (principal)
CPT/HCPCS: 36415; 80053; 83704; 83735; 83880; 84443; 85025

== ENCOUNTER 2024-02-07 22:09 | Outpatient (CLI) | payer MEDICARE | END 2024-02-07 23:59 | disposition critical access hospital (66) | LOC: EMS 22:09 | DX: R07.89 Other chest pain (principal) | CPT/HCPCS: A0425; A0429 ==

== ENCOUNTER 2024-02-07 22:30 | Emergency (ER) | payer MEDICARE ==
[2024-02-07 22:49] LABS: BASOPHILS % (AUTO) 0.4 %; EOSINOPHILS # (AUTO) 0.3 10^3/uL (0.0-0.7); EOSINOPHILS % (AUTO) 5.7 %; HCT - HEMATOCRIT 29.5 % (42.0-52.0); HGB - HEMOGLOBIN 9.4 g/dL (14.0-18.0); LYMPHOCYTES # (AUTO) 0.9 10^3/uL (1.5-3.5); LYMPHOCYTES % (AUTO) 19.7 %; MEAN CORPUSCULAR HEMOGLOBIN 32.1 pg (27.0-31.0); MEAN CORPUSCULAR HGB CONC 31.9 g/dL (32.0-36.0); MEAN CORPUSCULAR VOLUME 100.7 fL (80.0-94.0); MEAN PLATELET VOLUME 9.9 fL (7.4-11.4); MONOCYTES # (AUTO) 0.4 10^3/uL (0.0-1.0); MONOCYTES % (AUTO) 8.6 %; NEUTROPHILS # (AUTO) 3.1 10^3/uL (1.5-6.6); NEUTROPHILS % (AUTO) 65.2 %; PLT - PLATELET COUNT 178 10^3/uL (130-450); RED BLOOD COUNT 2.93 10^6/uL (4.70-6.10); WHITE BLOOD COUNT 4.8 x10^3/uL (4.8-10.8)
--- NOTE | 2024-02-07 23:02 | ED Physician Documentation ---
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 Patient denies chest pain, shortness of breath, nausea, cough, fever, leg swelling or other symptoms. PD PAST MEDICAL HISTORY - Past Medical History Past Medical History: Yes Cardiovascular: Hypertension, Coronary artery disease, IL, Valve disorder, Other Respiratory: None Neuro: Other Endocrine/Autoimmune: None GI: GERD : None HEENT: Other Psych: None Musculoskeletal: None Derm: None - Past Surgical History Past Surgical History: Yes General: Other Ortho: Spine surgery Cardiovascular: CABG, Coronary stent - Present Medications Home Medications: Ambulatory Orders Medication Instructions Recorded Confirmed Nitroglycerin [Nitrostat] 0.4 mg SL PRN PRN 07/02/15 02/07/24 carvediloL [Coreg] 6.25 mg PO BID 03/21/23 02/07/24 Furosemide [Lasix] 40 mg PO DAILY 02/07/24 02/07/24 Lisinopril [Zestril] 10 mg PO BID 02/07/24 02/07/24 Spironolactone [Aldactone] 12.5 mg PO DAILY 02/07/24 02/07/24 fentaNYL 50 MCG PATCH [Duragesic 1 patch TOP UD 02/07/24 02/07/24 50mcg patch] - Allergies Allergies/Adverse Reactions: Allergies Allergy/AdvReac Type Severity Reaction Status Date / Time valacyclovir AdvReac Hallucinati Verified 02/07/24 22:40 ons - Social History Does the pt smoke?: No Smoking Status: Never smoker Does the pt drink ETOH?: No Does the pt have substance abuse?: No - Immunizations Immunizations are current?: No Immunizations: TDAP >10years/unknown - POLST Patient has POLST: Yes PD ED PE NORMAL - Vitals Vital signs reviewed: Yes - General General: Alert and oriented X 3, No acute distress, Well developed/nourished, Other (Elderly appearing) - HEENT HEENT: Atraumatic, PERRL, EOMI - Neck Neck: Supple, no meningeal sign - Cardiac Cardiac: RRR - Respiratory Respiratory: No respiratory distress, Clear bilaterally - Abdomen Abdomen: Non tender, Non distended Results - Vitals Vitals: Vital Signs - 24 hr 02/07/24 02/07/24 02/08/24 22:38 23:30 00:00 Temperature 36.3 C L Heart Rate 82 77 72 Respiratory 18 20 13 Rate Blood Pressure 119/68 104/61 106/59 L O2 Saturation 97 92 93 02/08/24 00:30 Temperature Heart Rate 76 Respiratory 18 Rate Blood Pressure 108/59 L O2 Saturation 98 Oxygen O2 Source Room air - EKG (time done) 2242 EKG releavant findings:: EKG personally interpreted by author of this note. 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 ) Other comments: Other comments (LAE, LVH) Compare to prior EKG: Unchanged from prior EKG (11/12/23) - Labs Labs: Laboratory Tests 02/07/24 02/07/24 02/08/24 22:45 22:45 00:30 WBC 4.8 RBC 2.93 L Hgb 9.4 L Hct 29.5 L MCV 100.7 H MCH 32.1 H MCHC 31.9 L RDW 14.0 Plt Count 178 MPV 9.9 Neut # (Auto) 3.1 Lymph # (Auto) 0.9 L Real # (Auto) 0.4 Eos # (Auto) 0.3 Baso # (Auto) 0.0 Absolute Nucleated RBC 0.00 Nucleated RBC % 0.0 Sodium 131 L Potassium 5.0 H Chloride 98 L Carbon Dioxide 30 Anion Gap 3.0 L BUN 67 H Creatinine 1.6 H Estimated GFR (MDRD) 42 L Glucose 114 H Calcium 9.6 Total Bilirubin 0.4 AST 14 ALT 9 L Alkaline Phosphatase 34 L Troponin I High Sens 16.6 16.4 Total Protein 9.5 H Albumin 3.4 Globulin 6.1 H Albumin/Globulin Ratio 0.6 L PD Medical Decision Making - ED course ED course: 83-year-old man presents with her palpitations lasting 5 minutes at home at 7 PM tonight. CBC, abdominal panel, troponin, EKG, chest x-ray ordered. He does have some anemia with hemoglobin of 9.4 with previous 10.3 on 01/31/2024. Patient denies rectal bleeding and declines rectal exam. He has borderline hyperkalemia without acute ekg changes. also with creatinine 1.6 with baseline 1, therefore an IV fluid bolus was provided. Plan to follow-up outpatient with primary care provider to recheck these labs and investigate further. He does have an appoint with his spar machine operator helper Dr. Crews on Saturday. 2 sets of troponins are negative. plan to discharge to follow-up outpatient. Strict return precautions discussed. Departure - Departure Disposition: Home, Self Care Clinical Impression: Palpitations Condition: Stable Instructions: Heart Palpitations Comments: You were seen in the emergency department for heart palpitations. Your chest xray and ekg uncovered no new issues. Your lab tests showed you have some irritation to the kidneys. This may be due to dehydration therefore you got some IV fluids. You also have had anemia in the past, that is worsening. Please follow-up with your primary care provider to recheck these labs and spar machine operator helper for heart exam and return to the emergency department if you have any new or worsening symptoms or other concerns. Forms: PCP List
[2024-02-07 23:11] LABS: TROPONIN I HIGH SENSITIVITY 16.6 ng/L (2.3-19.7)
[2024-02-07 23:15] LABS: ALBUMIN 3.4 g/dL (3.2-5.5); ALBUMIN/GLOBULIN RATIO 0.6 (1.0-2.2); BILIRUBIN,TOTAL 0.4 mg/dL (0.2-1.0); CALCIUM 9.6 mg/dL (8.5-10.3); CREATININE 1.6 mg/dL (0.6-1.3); TOTAL PROTEIN 9.5 g/dL (6.4-8.9)
--- NOTE | 2024-02-07 23:16 | XRAY Report ---
PROCEDURE: Chest 1V INDICATIONS: chest pain TECHNIQUE: One view of the chest was acquired. COMPARISON: CXR 11/12/2023, 09/17/2023. CT chest 06/22/2023. FINDINGS: Surgical changes and devices: Post median sternotomy. Lungs and pleura: No pleural effusions or pneumothorax. Minimal streaky opacity at the left lung bas e. Suspect atelectasis or scarring. Mediastinum: Mediastinal contours appear unchanged. Heart size is prominent. Bones and chest wall: No suspicious bony lesions. Overlying soft tissues appear unremarkable. IMPRESSION: No acute cardiopulmonary process identified. Suspect scarring or atelectasis at the left lung base. Reviewed by: Juaquin Pickett MD on 02/07/2024 11:15 PM PDT Approved by: Juaquin Pickett MD on 02/07/2024 11:15 PM PDT Station ID: [id number]
[2024-02-08] MEDS: SODIUM CHLORIDE 0.9% 250 ML IV STA (01:51)
[2024-02-08 02:01] VITALS: BP 117/64; O2SAT 94
== END 2024-02-08 02:09 | disposition home or self-care (01) ==
LOC: ED 22:30
DX: R00.2 Palpitations (principal); I10 Essential (primary) hypertension; I25.810 Atherosclerosis of coronary artery bypass graft(s) without angina pectoris; I25.2 Old myocardial infarction; Z95.1 Presence of aortocoronary bypass graft; Z79.899 Other long term (current) drug therapy
CPT/HCPCS: 36415; 80053; 84484; 85025; 93005; 99283; 99284

== ENCOUNTER 2024-02-21 08:00 | Outpatient (CLI) | payer MEDICARE | END 2024-02-21 23:59 | disposition home or self-care (01) | LOC: PC 08:00 | PROVIDERS: ATTEND Nurse Practitioner Adult Health | DX: Z51.5 Encounter for palliative care (principal); C90.00 Multiple myeloma not having achieved remission | CPT/HCPCS: 99426 ==

== ENCOUNTER 2024-02-27 08:00 | Outpatient (CLI) | payer MEDICARE | END 2024-02-27 23:59 | disposition home or self-care (01) | LOC: PC 08:00 | PROVIDERS: ATTEND Nurse Practitioner Adult Health | DX: Z51.5 Encounter for palliative care (principal); C90.00 Multiple myeloma not having achieved remission; G89.3 Neoplasm related pain (acute) (chronic); I11.0 Hypertensive heart disease with heart failure; I50.22 Chronic systolic (congestive) heart failure; I25.5 Ischemic cardiomyopathy; F41.9 Anxiety disorder, unspecified; Z71.89 Other specified counseling; Z79.899 Other long term (current) drug therapy | CPT/HCPCS: 99215 ==

== ENCOUNTER 2024-03-22 08:00 | Outpatient (CLI) | payer MEDICARE | END 2024-03-22 23:59 | disposition home or self-care (01) | LOC: PC 08:00 | PROVIDERS: ATTEND Nurse Practitioner Adult Health | DX: Z51.5 Encounter for palliative care (principal); C90.00 Multiple myeloma not having achieved remission | CPT/HCPCS: 99426 ==

== ENCOUNTER 2024-04-30 07:12 | Outpatient (CLI) | payer MEDICARE | END 2024-04-30 23:59 | disposition EMS.NT | LOC: EMS 07:12 | DX: R45.1 Restlessness and agitation (principal) ==